=== PATIENT | female | born 1985 | race Caucasian/White ===

== ENCOUNTER 2023-04-11 07:09 | Outpatient (OUT) | payer BC, SELFPAY ==
--- NOTE | 2023-04-11 07:14 | CT_ITS ---
[address] [address] Patient Name: ALICJA RODRIGUEZ MRN: [id number] date: 1985 Sex: F Assigned Patient Location: CT Current Patient Location: CT Accession/Order Number: [id number] Exam Date: 04/11/2023 08:50 Report Date: 04/11/2023 09:37 At the request of: NON-STAFF PHYSICIAN Procedure: CT abdomen pelvis w con EXAMINATION: CT abdomen pelvis w con HISTORY: Gross hematuria R31.0 , abdominal pain COMPARISON: CT abdomen pelvis 03/13/2023 TECHNIQUE: Axial, Coronal, and Sagittal images were obtained without and/or with IV contrast as indicated by examination type. Dose reduction techniques were achieved by using automated exposure control and/or adjustment of mA and/or kV according to patient size and/or use of iterative reconstruction technique. FINDINGS: LUNG BASES: No visible pulmonary or pleural disease. LIVER: Stable 1.5 cm hypodensity within inferior right hepatic lobe suspected represent a hemangioma. Stable small cyst within left hepatic lobe. BILIARY: No dilatation or calcification. PANCREAS: No lesion, fluid collection, or abnormal duct dilatation. SPLEEN: No enlargement or focal lesion. ADRENALS: No mass or enlargement. KIDNEYS: No mass, obstruction, or calcification. BOWEL/MESENTERY: No visible mass, obstruction, or bowel wall thickening. Normal appendix. AORTA/VASCULAR: No aneurysm or dissection. RETROPERITONEUM: No mass or adenopathy. LYMPH NODES: No adenopathy. URINARY BLADDER: No visible focal wall thickening, lesion, or calculus. PELVIC ORGANS: No visible mass. Pelvic organs appropriate for patient age. ABDOMINAL WALL: No mass or hernia. BONES: No bony lesion or fracture. OTHER: Negative. IMPRESSION: 1.No urinary tract calculi, mass, or suspicious findings to account for patient's symptoms. Electronically authenticated by: DIANE EVANS Date: 04/11/2023 09:37
== END 2023-04-11 07:10 ==
LOC: CT 07:09
DX: R31.0 Gross hematuria (principal); R10.9 Unspecified abdominal pain
CPT/HCPCS: 74177; Q9967

== ENCOUNTER 2023-11-12 04:16 | Emergency (ER) | payer BC, SELFPAY ==
[2023-11-12 04:19] VITALS: BP 124/86; PULSE 105; RESP 18; TEMP 37.1; O2SAT 100; BMI 25.7
--- NOTE | 2023-11-12 05:08 | ED_ITS ---
HPI - General Adult General Chief complaint: Headache Stated complaint: flank pain headache Time Seen by Provider: 11/12/23 05:03 Source: patient Mode of arrival: walk-in Limitations: no limitations History of Present Illness HPI narrative: patient presents complaining of right flank pain. ongoing pain for past 5 days. States similar pain in the past without clear etiology including neg workup by Urology. [place] also developed a migraine headache. Similar to past migraines. No nausea or photophobia. no fever or chills. No injury to her lower back or radicular symptoms Related Data Home Medications Medication Instructions Recorded Confirmed ubrogepant 50 mg tablet (Ubrelvy) mg 11/12/23 Allergies Allergy/AdvReac Type Severity Reaction Status Date / Time No Known Drug Allergies Allergy Verified 11/12/23 04:24 Review of Systems ROS Status of ROS 10 or more systems reviewed and unremark able except as noted in history and below PFSH PFS Social History Smoking status: Current every day smoker Exam Constitutional Vital Signs, click to edit/add: Last Vital Signs Temp 98.7 F 11/12/23 04:19 Pulse 105 H 11/12/23 04:19 Resp 18 11/12/23 04:19 BP 124/86 11/12/23 04:19 Pulse Ox 100 11/12/23 04:19 O2 Del Method Room Air 11/12/23 04:19 Common normals: average body habitus, oriented x3, no limitations, healthy appearing, alert and well nourished General appearance: in distress (mild) HENMT Common normals: normocephalic and head/scalp atraumatic Eye Common normals: PERRL, EOMs intact bilaterally and conjunctivae normal Respiratory Common normals: normal respiratory effort, no retractions and no use of accessory muscles Cardio Common normals: regular rate, regular rhythm, S1 normal heart sound and S2 normal heart sound GI Common normals: Normal to inspection, nondistended, normoactive bowel sounds present, soft to palpation and non-tender Back & Pelvis General back: CVA tenderness Other: right CVA tenderness Extremity Common normals: normal to inspection and full ROM Neuro Common normals: oriented x3, CN's II-XII intact bilaterally, moves all extremities, no focal motor deficits and no sensory deficits noted Psych Appearance: grossly normal Course Vital Signs Vital signs: Vital Signs Temperature 98.7 F 11/12/23 04:19 Pulse Rate 105 H 11/12/23 04:19 Respiratory Rate 18 11/12/23 04:19 Blood Pressure 124/86 11/12/23 04:19 Pulse Oximetry 100 11/12/23 04:19 Oxygen Delivery Method Room Air 11/12/23 04:19 Temperature 98.7 F 11/12/23 04:19 Pulse Rate 105 H 11/12/23 04:19 Respiratory Rate 18 11/12/23 04:19 Blood Pressure 124/86 11/12/23 04:19 Pulse Oximetry 100 11/12/23 04:19 Oxygen Delivery Method Room Air 11/12/23 04:19 Medical Decision Making MDM Narrative Medical decision making narrative: patient presents with recurrent flank pain. Similar pain in the past without clear cause. also has a migraine. workup including CT abd/pelvis neg. migraine improved after intervention. UA without infection but does have microscopic hematuria that will require followup. Patient is feeling better including improvement in her flank pain and discharged to follow up with her doctor Lab Data Labs: Lab Results 11/12/23 Range/Units 04:45 WBC 8.8 (4.0-11.0) 10^3/uL RBC 4.72 (4.20-5.40) 10^6/uL Hgb 14.4 (12.0-16.0) g/dL Hct 44.3 (36.0-48.0) % MCV 93.9 (81.0-99.0) fL MCH 30.5 (26.7-34.0) pg MCHC 32.5 (29.9-35.2) g/dL RDW 12.2 (11.0-15.0) % Plt Count 329 (150-450) 10^3/uL MPV 9.6 (9.5-13.5) fL Neut % (Auto) 49.2 (43.0-75.0) % Lymph % (Auto) 36.5 (20.5-60.0) % [place] % (Auto) 12.5 H (1.7-12.0) % Eos % (Auto) 1.0 (0.9-7.0) % Baso % (Auto) 0.6 (0.2-2.0) % Neut # (Auto) 4.3 (1.4-6.5) 10^3/uL Lymph # (Auto) 3.2 (1.2-3.8) 10^3/uL [place] # (Auto) 1.1 H (0.3-0.8) 10^3/uL Eos # (Auto) 0.1 (0.0-0.7) 10^3/uL Baso # (Auto) 0.1 (0.0-0.1) 10^3/uL Abs Immat Gran (auto) 0.02 (0.00-0.03) 10^3/uL Imm/Tot Granulo (auto) 0.2 (0.0-0.5) % Sodium 140 (136-145) mmol/L Potassium 3.6 (3.5-5.1) mmol/L Chloride 105 (98-107) mmol/L Carbon Dioxide 23.8 (21.0-32.0) mmol/L Anion Gap 14.8 BUN 11.0 (7.0-18.0) mg/dL Creatinine 0.77 (0.55-1.02) mg/dL Est GFR ( Amer) >60 (>=60) Est GFR (Non-Af Amer) >60 (>=60) BUN/Creatinine Ratio 14.3 Glucose 122 H (74-106) mg/dL Lactate 1.2 (0.4-2.0) mmol/L Calcium 9.2 (8.5-10.1) mg/dL Total Bilirubin 0.6 (0.2-1.0) mg/dL AST 16 (15-37) U/L ALT 20 (14-59) U/L Alkaline Phosphatase 64 (46-116) U/L Total Protein 7.7 (6.4-8.2) g/dL Albumin 3.7 (3.4-5.0) g/dL Globulin 4.0 g/dL Albumin/Globulin Ratio 0.9 Urine Color Yellow (YELLOW) Urine Clarity Clear (CLEAR) Urine pH 7.0 (5.0-9.0) Ur Specific [place] 1.020 (1.005-1.025) Urine Protein Negative (NEG/TRACE) mg/dL Urine Glucose (UA) Negative (NEGATIVE) mg/dL Urine Ketones Negative (NEGATIVE) mg/dL Urine Occult Blood Moderate A (NEGATIVE) Urine Nitrite Negative (NEGATIVE) Urine Bilirubin Negative (NEGATIVE) Urine Urobilinogen 1.0 (0.2-1.0) EU/dL Ur Leukocyte Esterase Negative (NEGATIVE) Urine RBC 2-5 A (0-2) #/HPF Urine WBC 2-5 A (NONE SEEN) #/HPF Ur Squamous Epith Cells Few A (NONE/RARE) #/LPF Urine Crystals Seen A (None Seen) #/HPF Amorphous Sediment Few Urine Bacteria None seen (NONE SEEN) #/HPF Urine Casts None seen (NONE SEEN) #/LPF Urine Mucus None seen (NONE SEEN) Ur Culture Indicated? No Discharge Plan Discharge Chief Complaint: Headache Clinical Impression: Acute flank pain, Migraine, Hematuria Patient Disposition: Home, Self-Care Prescriptions / Home Meds: No Action Ubrelvy 50 mg tablet Instructions: Migraine Headache (ED), Hematuria (ED), Flank Pain (ED) Additional Instructions: follow up with your doctor this week for recheck or your urine Stand Alone Forms: Portal Instructions Referrals: CHELSEY RUTH [Primary Care Provider] - 1 week
--- NOTE | 2023-11-12 05:11 | CT_ITS ---
[address] [address] Patient Name: ALICJA RODRIGUEZ MRN: [id number] date: 1985 Sex: F Assigned Patient Location: ER Current Patient Location: ED.[facility] Accession/Order Number: [id number] Exam Date: 11/12/2023 05:20 Report Date: 11/12/2023 06:08 At the request of: AUSTYN GUERRA Procedure: CT abdomen pelvis wo con EXAMINATION: CT abdomen pelvis wo con HISTORY: right flank pain COMPARISON: CT abdomen pelvis 04/11/2023 TECHNIQUE: Axial, Coronal, and Sagittal images were obtained without and/or with IV contrast as indicated by examination type. Dose reduction techniques were achieved by using automated exposure control and/or adjustment of mA and/or kV according to patient size and/or use of iterative reconstruction technique. FINDINGS: LUNG BASES: No visible pulmonary or pleural disease. LIVER: Stable small left hepatic lobe cyst versus hemangioma. No enlargement, atrophy, suspicious density, or significant focal lesion. BILIARY: No dilatation or calcification. PANCREAS: No lesion, fluid collection, or abnormal duct dilatation. SPLEEN: No enlargement or focal lesion. ADRENALS: No mass or enlargement. KIDNEYS: No mass, obstruction, or calcification. BOWEL/MESENTERY: No visible mass, obstruction, or bowel wall thickening. Normal appendix. AORTA/VASCULAR: No aneurysm or dissection. RETROPERITONEUM: No mass or adenopathy. LYMPH NODES: No adenopathy. URINARY BLADDER: No visible focal wall thickening, lesion, or calculus. PELVIC ORGANS: No visible mass. Pelvic organs appropriate for patient age. ABDOMINAL WALL: No mass or hernia. BONES: No bony lesion or fracture. OTHER: Negative. CT/CT abdomen pelvis wo con IMPRESSION: 1. No acute or suspicious findings to account for patient's symptoms. Electronically authenticated by: DIANE EVANS Date: 11/12/2023 06:08
[2023-11-12 05:27] LABS: Bilirubin Urine NEGATIVE (NEGATIVE); Blood Urine MODERATE (NEGATIVE); Clarity Urine CLEAR (CLEAR); Color Urine YELLOW (YELLOW); Glucose Urine UA NEGATIVE (NEGATIVE); Ketones Urine NEGATIVE (NEGATIVE); Leukocyte Esterase Urine NEGATIVE (NEGATIVE); Nitrite Urine NEGATIVE (NEGATIVE); Protein Urine NEGATIVE (NEG/TRACE); Urine Microscopic Indicated YES
[2023-11-12 05:29] LABS: Basophils Absolute Auto 0.1 10^3/uL (0.0-0.1); Basophils Percent Auto 0.6 % (0.2-2.0); Eosinophils Absolute Auto 0.1 10^3/uL (0.0-0.7); Hematocrit 44.3 % (36.0-48.0); Hemoglobin 14.4 g/dL (12.0-16.0); Immature Granulocytes Abs Auto 0.02 10^3/uL (0.00-0.03); Immature Granulocytes Pct Auto 0.2 % (0.0-0.5); Lymphocytes Absolute Auto 3.2 10^3/uL (1.2-3.8); Lymphocytes Percent Auto 36.5 % (20.5-60.0); Mean Corpuscular HGB Conc 32.5 g/dL (29.9-35.2); Mean Corpuscular Hemoglobin 30.5 pg (26.7-34.0); Mean Corpuscular Volume 93.9 fL (81.0-99.0); Mean Platelet Volume 9.6 fL (9.5-13.5); Monocytes Absolute Auto 1.1 10^3/uL (0.3-0.8); Monocytes Percent Auto 12.5 % (1.7-12.0); Neutrophils Absolute Auto 4.3 10^3/uL (1.4-6.5); Neutrophils Percent Auto 49.2 % (43.0-75.0); Platelet Count 329 10^3/uL (150-450); Red Blood Count 4.72 10^6/uL (4.20-5.40); Red Cell Distribution Width 12.2 % (11.0-15.0); White Blood Count 8.8 10^3/uL (4.0-11.0)
[2023-11-12 05:34] LABS: Amorphous Sediment Urine FEW; Bacteria Urine NONE SEEN #/HPF (NONE SEEN); Cast Seen? NONE SEEN #/LPF (NONE SEEN); Crystals Seen? Seen #/HPF (None Seen); Mucus Urine NONE SEEN (NONE SEEN); Squamous Epithelial Cell Urine FEW #/LPF (NONE/RARE)
[2023-11-12 05:35] LABS: Urine Culture Indicated NO
[2023-11-12] MEDS: KETOROLAC TROMETHAMINE 30 MG/ML VIAL IVP (05:51)
[2023-11-12] MEDS: 0.9 % SODIUM CHLORIDE 1,000 ML 999 ML IV (05:51)
[2023-11-12] MEDS: DIPHENHYDRAMINE HCL 50 MG/ML (1ML) VIAL IV (05:53)
[2023-11-12] MEDS: METOCLOPRAMIDE HCL 10 MG/2 ML VIAL IVP (05:54)
[2023-11-12 05:56] LABS: Lactate/Lactic Acid 1.2 mmol/L (0.4-2.0)
[2023-11-12 06:02] LABS: Alanine Aminotransferase 20 U/L (14-59); Albumin Globulin Ratio 0.9; Albumin Level 3.7 g/dL (3.4-5.0); Alkaline Phosphatase 64 U/L (46-116); Anion Gap 14.8; Aspartate Amino Transferase 16 U/L (15-37); BUN Creatinine Ratio 14.3; Bilirubin Total 0.6 mg/dL (0.2-1.0); Calcium 9.2 mg/dL (8.5-10.1); Carbon Dioxide 23.8 mmol/L (21.0-32.0); Chloride 105 mmol/L (98-107); Estimated GFR (African America >60 (>=60); Estimated GFR (Non-African Ame >60 (>=60); Glucose 122 mg/dL (74-106); Potassium 3.6 mmol/L (3.5-5.1); Sodium 140 mmol/L (136-145); Total Protein 7.7 g/dL (6.4-8.2)
== END 2023-11-12 06:52 | disposition home or self-care (01) ==
PROVIDERS: Emergency Provider Internal Medicine; PCP Family Medicine
DX: R10.9 Unspecified abdominal pain (principal); R31.9 Hematuria, unspecified; G43.909 Migraine, unspecified, not intractable, without status migrainosus; F17.210 Nicotine dependence, cigarettes, uncomplicated
CPT/HCPCS: 36415; 74176; 80053; 81001; 83605; 85025; 96374; 96375; 99284; J1200; J1885; J2765

== ENCOUNTER 2024-11-13 21:28 | Emergency (ER) | payer BC, SELFPAY ==
[2024-11-13] VITALS (13 sets, daily range): BP systolic 104–120; BP diastolic 58–74; PULSE 78–101; TEMP 37–37.1; O2SAT 98–100; BMI 25.7
--- OUTSIDE RECORDS SUMMARY | 2024-11-13 21:33 | XMS_ITS | CCD ---
Author Organization [facility] Care Team Providers Care Desk Officer Name Role Phone ERIK ROBERT Consulting Unavailable DR RAÚL MONSON Primary Care Unavailable ERIK ROBERT Admitting Unavailable ERIK ROBERT Attending Unavailable ALFREDO, MARLY Attending Unavailable ALFREDO, MARLY Admitting Unavailable DR RAÚL MONSON Primary Care Unavailable DR HA CONTE Consulting Unavailable ALFREDO, MARLY Consulting Unavailable DO Pedro Luis Roblero Primary Care Provider GRICELDA Jack Attending Provider [phone] Lyubov Jack Unavailable PEDRO LUIS ROBLERO Primary Care Physician [phone] PIETER ESPINOZA Attending Unavailab Mary Osei Referring Unavailable Mary Layton Attending Unavailable Mary Layton Admitting Unavailable PIETER ESPINOZA Attending Unavailab PIETER Adler Admitting Unavailab PIETER Adler Attending Unavailab PIETER Adler Admitting Unavailab Mary Osei Referring Unavailable Mary Layton Attending Unavailable PIETER ESPINOZA Attending Unavailab PEDRO LUIS Fam Referring Unavailable ALFREDO, MARLY L Attending Unavailable ALFREDO, MARLY L Referring Unavailable ALFREDO, MARLY L Primary Care Unavailable ALFREDO, MARLY L Attending Unavailable ALFREDO, MARLY L Referring Unavailable ALFREDO, MARLY L Primary Care Unavailable ALFREDO, MARLY L Attending Unavailable ALFREDO, MARLY L Referring Unavailable ALFREDO, MARLY L Primary Care Unavailable ALFREDO, MARLY L Referring Unavailable ALFREDO, MARLY L Primary Care Unavailable ALFREDO, MARLY L Referring Unavailable ALFREDO, MARLY L Primary Care Unavailable Allergies Allergy Classification Reported Allergen(s) Allergy Type Date of Onset Reaction(s) Facility (1 source) No Known Medication Allergies; Translations: [No Known Medication Allergies] Propensity to adverse reactions (disorder) [facility] Repository Medications Current Medications Medication Drug Class(es) Dates Sig (Normalized) Sig (Original) ciprofloxacin 500 mg oral tablet (2 sources) Quinolone Antimicrobial Start: 05-15-2022 take 1 tablet by mouth every twelve hours Cipro 500 MG 1 tablet Orally every 12 hrs for 5 day(s) Apr, Active ubrogepant 50 mg oral tablet (5 sources) Start: 04-01-2023 Ubrelvy 50 mg oral tablet Refills(s) 0 Start Date: 04/01/23 Status: Ordered Completed/Discontinued Medications Medication Drug Class(es) Dates Sig (Normalized) Sig (Original) Ibuprofen-800 mg 800 mg (2 sources) take 1 tablet by haris th every six hours as needed for pain Ibuprofen-800 mg 800 mg 1 tab orally every six hours prn pain Not-Taking Problems Problem Classification Problem Date Documented Date Episodic/Chronic Anxiety disorders (2 sources) Anxiety disorder, unspecified; Translations: [Anxiety disorder, unspecified] Onset: 02-25-2024 Chronic Diseases of white blood cells (2 sources) Lymphocytosis (symptomatic); Translations: [Lymphocytosis (symptomatic)] Onset: 04-30-2024 Chronic Genitourinary symptoms and ill-defined conditions (11 sources) Dysuria; Translations: [Frequency of micturition] Onset: 07-21-2021 Resolved: 05-15-2022 Episodic Headache; including migraine (6 sources) Migraine; Translations: [Tension-type headache, unspecified, not intractable] Onset: 04-30-2024 04-01-2023 Chronic Malaise and fatigue (2 sources) Other fatigue; Translations: [Other fatigue] Onset: 03-26-2024 Episodic Mood disorders (1 source) Major depressive disorder, single episode, moderate; Translations: [Major depressive disorder, single episode, moderate] Onset: 03-26-2024 Chronic Mood disorders (2 sources) Mood disorders; Translations: [Depression, unspecified] Onset: 03-26-2024 Other nutritional; endocrine; and metabolic disorders (2 sources) Abnormal weight loss; Translations: [Abnormal weight loss] Episodic Substance-related disorders (2 sources) Nicotine dependence, cigarettes, uncomplicated; Translations: [Nicotine dependence, unspecified, uncomplicated] Onset: 07-31-2021 Chronic Unclassified (4 sources) Unspecified lump in the right breast, overlapping quadrants; Translations: [UNS LUMP RT BREAST OVRLPNG QUADRNTS] Onset: 08-24-2021 Unclassified (1 source) mental health issues Onset: 02-25-2024 Urinary tract infections (11 sources) Urinary tract infection, site not specified; Translations: [Urinary tract infectious disease] Onset: 07-31-2021 Resolved: 05-15-2022 Episodic Results Test Name Value Interpretation Reference Range Facility CBC AND AUTO DIFFon 04-30-20 ABSOLUTE BASOPHIL 0.1 X10E9/L Normal 0.0-0.2 [facility] Comment on above: Performed By: #### C BCA #### [facility] ([id number]) [address] [facility] [facility] [address] [place] [address] ABSOLUTE NEUTROPHIL 4.8 X10E9/L Normal 1.5-6.6 [facility] Comment on above: Performed By: #### C BCA #### [facility] ([id number]) [address] [facility], [address] [place] [address] Basophils/100 WBC (Bld) 0.7 % Normal [facility] Comment on above: Performed By: #### C BCA #### [facility] ([id number]) [address] [facility], [address] [place] [address] Eosinophils (Bld) [#/Vol] 0.1 10*3/uL Normal 0.0-0.4 [facility] Comment on above: Performed By: #### C BCA #### [facility] ([id number]) [address] [facility] [address] [place] [address] Eosinophils/100 WBC (Bld) 0.9 % Normal [facility] Comment on above: Performed By: #### C BCA #### [facility] ([id number]) [address] [facility], [address] [place] [address] Erythrocyte distribution width (RBC) [Ratio] 13.8 % Normal 11.5-15.0 [facility] Comment on above: Performed By: #### C BCA #### [facility] ([id number]) [address] [place] [address] Hematocrit (Bld) [Volume fraction] 45.9 % Normal 35-47 [facility] Comment on above: Performed By: #### C BCA #### [facility] ([id number]) [address] [place] [address] Hemoglobin (Bld) [Mass/Vol] 14.9 g/dL Normal 11.7-15.5 [facility] Comment on above: Performed By: #### C BCA #### [facility] ([id number]) [address] [place] [address] Lymphocytes (Bld) [#/Vol] 2.6 10*3/uL Normal 1.0-3.5 [facility] Comment on above: Performed By: #### C BCA #### [facility] ([id number]) [address] [place] [address] Lymphocytes/100 WBC (Bld) 30.2 % Normal [facility] Comment on above: Performed By: #### C BCA #### [facility] ([id number]) [address] [place] [address] MCH (RBC) [Entitic mass] 31.1 pg Normal 27-34 [facility] Comment on above: Performed By: #### C BCA #### [facility] ([id number]) [address], [address] [place] [address] MCHC (RBC) [Mass/Vol] 32.5 g/dL Normal 32-36 [facility] Comment on above: Performed By: #### C BCA #### [facility] ([id number]) [address] [place] [address] MCV (RBC) [Entitic vol] 95 fL Normal 80-100 [facility] Comment on above: Performed By: #### C BCA #### [facility] ([id number]) [address] [place] [address] Monocytes (Bld) [#/Vol] 1.1 10*3/uL High 0-0.9 [facility] Comment on above: Performed By: #### C BCA #### [facility] ([id number]) [address] [place] [address] Monocytes/100 WBC (Bld) 12.4 % Normal [facility] Comment on above: Performed By: #### C BCA #### [facility] ([id number]) [address], [address] [place] [address] Neutrophils/100 WBC (Bld) 55.8 % Normal [facility] Comment on above: Performed By: #### C BCA #### [facility] ([id number]) [address] [place] [address] Platelet mean volume (Bld) [Entitic vol] 8.5 fL Normal 7-12 [facility] Comment on above: Performed By: #### C BCA #### [facility] ([id number]) [address], [address] [place] [address] Platelets (Bld) [#/Vol] 362 10*3/uL Normal 150-450 [facility] Comment on above: Performed By: #### C BCA #### [facility] ([id number]) [address], [address] [place] [address] RBC COUNT 4.81 X10E12/L Normal 3.80-5.20 [facility] Comment on above: Performed By: #### C BCA #### [facility] ([id number]) [address], [address] [place] [address] WBC (Bld) [#/Vol] 8.6 10*3/uL Normal 4.0-11.0 [facility] Comment on above: Performed By: #### C BCA #### [facility] ([id number]) [address], [address] [place] [address] BASIC METABOLIC PANLon 03-26 Anion gap [Moles/Vol] 11 mmol/L Normal 5-15 [facility] Comment on above: Performed By: #### B MP, TSHR, CBCA #### [facility] ([id number]) [address] [place] [address] Calcium [Mass/Vol] 9.5 mg/dL Normal 8.5-10.5 [facility] Comment on above: Performed By: #### B MP, TSHR, CBCA #### [facility] ([id number]) [address] [place] [address] Chloride [Moles/Vol] 105 mmol/L Normal 98-109 [facility] Comment on above: Performed By: #### B MP, TSHR, CBCA #### [facility] ([id number]) [address], [address] [place] [address] CO2 [Moles/Vol] 23 mmol/L Normal 22-32 [facility] Comment on above: Performed By: #### B MP, TSHR, CBCA #### [facility] ([id number]) [address], [address] [place] [address] Creatinine [Mass/Vol] 0.72 mg/dL Normal 0.40-1.00 [facility] Comment on above: Result Comment: METH OD TRACEABLE TO IDMS STANDARD Performed By: #### B MP, TSHR, CBCA #### [facility] ([id number]) [address] [address] eGFR (CKD-EPI) NON-RACE DEPENDENT >90 Normal >59 [facility] Comment on above: Result Comment: Reported eGFR is based on the CKD-EPI 2020 equation that does not use a race coefficient. Performed By: #### B MP, TSHR, CBCA #### [facility] ([id number]) [address] [address] Glucose [Mass/Vol] 86 mg/dL Normal 65-99 [facility] Comment on above: Performed By: #### B MP, TSHR, CBCA #### [facility] ([id number]) [address] [address] Potassium [Moles/Vol] 4.9 mmol/L Normal 3.5-5.0 [facility] Comment on above: Performed By: #### B MP, TSHR, CBCA #### [facility] ([id number]) [address] [address] Sodium [Moles/Vol] 139 mmol/L Normal 134-146 [facility] Comment on above: Performed By: #### B MP, TSHR, CBCA #### [facility] ([id number]) [address] [address] Urea nitrogen [Mass/Vol] 9 mg/dL Normal 5-23 [facility] Comment on above: Performed By: #### B MP, TSHR, CBCA #### [facility] ([id number]) [address] [address] CBC AND AUTO DIFFon 03-26-20 24 ABSOLUTE BASOPHIL 0.1 X10E9/L Normal 0.0-0.2 [facility] Comment on above: Performed By: #### B MP, TSHR, CBCA #### [facility] ([id number]) [address] [address] ABSOLUTE NEUTROPHIL 8.2 X10E9/L High 1.5-6.6 [facility] Comment on above: Performed By: #### B MP, TSHR, CBCA #### [facility] ([id number]) [address] [facility] [address] [place] [address] Basophils/100 WBC (Bld) 0.5 % Normal [facility] Comment on above: Performed By: #### B MP, TSHR, CBCA #### [facility] ([id number]) [address] [facility] [address] [place] [address] Eosinophils (Bld) [#/Vol] 0.1 10*3/uL Normal 0.0-0.4 [facility] Comment on above: Performed By: #### B MP, TSHR, CBCA #### [facility] ([id number]) [address] [address] Eosinophils/100 WBC (Bld) 0.4 % Normal [facility] Comment on above: Performed By: #### B NADYA, TSHR, CBCA #### [facility] ([id number]) [address] [address] Erythrocyte distribution width (RBC) [Ratio] 13.8 % Normal 11.5-15.0 [facility] Comment on above: Performed By: #### B MP, TSHR, CBCA #### [facility] ([id number]) [address] [address] [place] [address] Hematocrit (Bld) [Volume fraction] 43.0 % Normal 35-47 [facility] Comment on above: Performed By: #### B MP, TSHR, CBCA #### [facility] ([id number]) [address] [address] [place] [address] Hemoglobin (Bld) [Mass/Vol] 14.2 g/dL Normal 11.7-15.5 [facility] Comment on above: Performed By: #### B MP, TSHR, CBCA #### [facility] ([id number]) [address] [address] [place] [address] Lymphocytes (Bld) [#/Vol] 2.6 10*3/uL Normal 1.0-3.5 [facility] Comment on above: Performed By: #### B MP, TSHR, CBCA #### [facility] ([id number]) [address] [address] [place] [address] Lymphocytes/100 WBC (Bld) 21.3 % Normal [facility] Comment on above: Performed By: #### B MP, TSHR, CBCA #### [facility] ([id number]) [address] [address] MCH (RBC) [Entitic mass] 30.9 pg Normal 27-34 [facility] Comment on above: Performed By: #### B MP, TSHR, CBCA #### [facility] ([id number]) [address] [facility] [address] [place] [address] MCHC (RBC) [Mass/Vol] 33.0 g/dL Normal 32-36 [facility] Comment on above: Performed By: #### B MP, TSHR, CBCA #### [facility] ([id number]) [address] [address] [place] [address] MCV (RBC) [Entitic vol] 94 fL Normal 80-100 [facility] Comment on above: Performed By: #### B MP, TSHR, CBCA #### [facility] ([id number]) [address] [address] Monocytes (Bld) [#/Vol] 1.2 10*3/uL High 0-0.9 [facility] Comment on above: Performed By: #### B MP, TSHR, CBCA #### [facility] ([id number]) [address] [place] [address] Monocytes/100 WBC (Bld) 10.0 % Normal [facility] Comment on above: Performed By: #### B MP, TSHR, CBCA #### [facility] ([id number]) [address] [place] [address] Neutrophils/100 WBC (Bld) 67.8 % Normal [facility] Comment on above: Performed By: #### B MP, TSHR, CBCA #### [facility] ([id number]) [address], [address] [place] [address] Platelet mean volume (Bld) [Entitic vol] 8.3 fL Normal 7-12 [facility] Comment on above: Performed By: #### B MP, TSHR, CBCA #### [facility] ([id number]) [address] [place] [address] Platelets (Bld) [#/Vol] 337 10*3/uL Normal 150-450 [facility] Comment on above: Performed By: #### B MP, TSHR, CBCA #### [facility] ([id number]) [address] [place] [address] RBC COUNT 4.59 X10E12/L Normal 3.80-5.20 [facility] Comment on above: Performed By: #### B MP, TSHR, CBCA #### [facility] ([id number]) [address], [address] [place] [address] WBC (Bld) [#/Vol] 12.2 10*3/uL High 4.0-11.0 [facility] Comment on above: Performed By: #### B MP, TSHR, CBCA #### [facility] ([id number]) [address] [place] [address] TSH WITH REFLEXon 03-26-2024 TSH 0.91 uIU/mL Normal 0.49-4.67 [facility] Comment on above: Performed By: #### B MP, TSHR, CBCA #### [facility] ([id number]) [address] [facility], [address] [place] [address] Pre-Certification Formon Pre-Certification Form [id number] A0#1.00TIFF Normal [facility] Pre-Certification Formon Pre-Certification Form [id number] A6#1.00TIFF Normal [facility] Pre-Certification Form [id number] FD#1.00TIFF Normal [facility] Physician Orderon 12-05-2023 Physician Order [id number] 48#1.00TIFF Normal [facility] Physician Order [id number] AD#1.00TIFF Normal [facility] ED Note-Physicianon 11-18-19 ED Note-Physician [id number] 54#1.00TIFF [facility] RAD - CT Reporton 11-18-2023 RAD - CT Report [id number] D#1.00TIFF Normal [facility] C Urineon 11-12-2023 Bacteria identified Cx Nom (U) Microbiology PROCEDURE: Urine Culture [R1] SOURCE: U CleanCatch BODY SITE: COLLECTED DATE/TIME: 11/10/2023 15:38 EST RECEIVED DATE/TIME: 11/10/2023 18:54 EST START DATE/TIME: 11/10/2023 18:54 EST FREE TEXT SOURCE: EULALIA ESPINOZA PA-C, PA-C, JENNIFER E FINAL REPORTS Final Report [] Verified Date/Time: 11/12/2023 09:16 EST 1,000 cfu/ml Mixed skin contaminants Performing Locations R1: This test was performed at: [facility], [address] [place] [address], [address] , [place], [facility] Comment on above: Performed By: #### 2 [id number] ####[facility] [id number] [place] [address] Ambulatory Visit Summaryon 0 11-10-2023 Ambulatory Visit Summary ALICJA RODRIGUEZ :1985 Visit Date:11/10/2023 Ambulatory Visit Instructions Your Care Team Attending Physician - EULALIA ESPINOZA PA-C Primary Care Physician - PEDRO LUIS ROBLERO DO This Is Your Medications List ubrogepant (Ubrelvy 50 mg oral tablet) Procedures Performed Cystoscopy (04/14/2023), Tubal ligation. Medications What When Instructions Unchanged ubrogepant (Ubrelvy 50 mg oral tablet) Allergies No Known Medication Allergies Problems Ongoing - Any problem that you are currently receiving treatment for. Migraine Recurrent UTI Patient Survey You may receive a survey via text or e-mail asking about your office visit. Please share your experience with us by completing your survey. We appreciate your feedback and thank you for choosing us for your care. Normal [facility] RAD - CT Reporton 04-16-2023 RAD - CT Report [id number] E#1.00CD:127 [facility] Consent for Procedure/Surger yon 04-14-2023 Consent for Procedure/Surgery [id number] 9#1.00CD:127 [facility] Consent for Treatmenton 03-27 Consent for Treatment [id number] 6B#1.00CD:127 [facility] Inpatient Patient Summaryon 04-14-2023 Inpatient Patient Summary [place] [address] Clinical Summary Person Information Name: ALICJA RODRIGUEZ Age: 37 Years : 1985 Sex: Female PCP: PEDRO LUIS ROBLERO DO Marital Status: Single Race: White Ethnicity: Non- or Language: Japanese Visit Id: Visit Reason: GROSS HEMATURIA AND REACURRING UTI Speciality: Acuity: Enc Type: Outpatient Med Service: Surgery Arrival: 04/14/2023 08:45:50 Discharge: Dispo Type: Address: [address] [place] [id number] Provider Notes: Diagnosis: Gross hematuria; Recurrent UTI Problems Active Recurrent UTI Migraine Smoking Status: Functional Status: Sensory Deficits: History of Falls: Mobility Assistance Prior to Admission: ADLs: Current Level of Assistance for Self-Care/Mobility: Cognitive Status: Allergies No Known Medication Allergies Laboratory or Other Results This Visit (last charted value for your 04/14/2023 visit) No Laboratory or Other Results This Visit Measurements: Height: 163 cm Weight: Blood Pressure: Not Valued / Not Valued BMI: Procedures No Procedures Documented Immunizations No Immunizations Documented This Visit Final Med List: ubrogepant (Ubrelvy 50 mg oral tablet) Care Team Members: Attending Physician: Mary Layton MD Consulting Physician: Referring Physician: Mary Layton MD Follow up: With: Address: When: Mary Layton [address] [place] [phone] Business (1) [address] [place] [address], [place] [address], [place] [phone] Business (1) Comments: Schedule follow up in 6 months or sooner if issues arise. Will call if VCUG/PFPT is recommended Patient Education Information: EU - Cystoscopy Discharge Instructions (CUSTOM) Normal [facility] IntraOperative Documentson 0 04-14-2023 IntraOperative Documents [id number] 3#1.00CD:127 Normal [facility] Main OR Intraoperative Recor don 04-14-2023 Main OR Intraoperative Record IntraOp Document Type FTURO Summary Primary Physician: Mary Layton MD Finalized Date/Time: 04/14/23 09:48:11 Pt. Name: ALICJA RODRIGUEZ Violet Griggs/Sex: 1985 Female Med Rec #: [id number] Physician: Mary Layton MD Financial #: [id number] Pt. Type: O Room/Bed: / Admit/Disch: 04/14/23 08:45:50 - Institution: Case Times FTURO Entry 1 Patient Times In Room 04/14/23 09:39:00 Out Room 04/14/23 09:54:00 Procedure Times Start 04/14/23 09:43:00 Stop 04/14/23 09:49:00 Anesthesia Times Last Modified By: Marcos DARLING, Leigh ESPOSITO 04/14/23 09:47:22 Case Attendance FTURO Entry 1 Entry 2 Entry 3 Case Attendee Mary Layton MD RN, KALYANOR, Lucy Jung Role Performed Surgeon - Primary Triage Licensed Practical Nurse - Primary Scrub - Primary Time In 04/14/23 09:39:00 04/14/23 09:39:00 04/14/23 09:39:00 Time Out 04/14/23 09:54:00 04/14/23 09:54:00 04/14/23 09:54:00 Procedure CYSTOSCOPY LOCAL(.) CYSTOSCOPY LOCAL(.) CYSTOSCOPY LOCAL(.) Comments Last Modified By: Marcos DARLING, KALYANOR, Marcos DARLING, KALYANOR, Marcos DARLING, KALYANORLeigh 04/14/23 Leigh 04/14/23 Leigh 04/14/23 09:47:23 09:47:23 09:47:23 Surgical Procedures FTURO Entry 1 Procedure Description Procedure CYSTOSCOPY LOCAL Modifiers . Surgeon Description CYSTO Primary Procedure Yes Primary Surgeon Mary Layton MD Start 04/14/23 09:43:00 Stop 04/14/23 09:49:00 Anesthesia Type Local Surgical Service Urology Wound Class 2 - Clean-Contaminated Last Modified By: Marcos DARLING, Leigh ESPOSITO 04/14/23 09:47:31 General Case Data FTURO Pre-Care Text: Classifies surgical wound, implements aseptic technique, initiates traffic control Entry 1 Case Information OR URO 1 FT Case Level None Wound Class 2 - Clean-Contaminated Specialty Urology Preop Diagnosis GROSS HEMATURIA AND Postop Same As Preop No REACURRING UTI Postop Diagnosis clear bladder Outcomes Met? Yes Last Modified By: VAIBHAV Rodríguez RN, Ruthann 04/14/23 09:47:44 Post-Care Text: The patient is free from signs and symptoms of infection EU IntraOp - FTURO Pre-Care Text: Implements protective measures prior to operative or invasive procedure, confirms identity before the operative or invasive procedure, verifies operative procedure, surgical site, and laterality Entry 1 EU Perioperative Protocols Procedure(s) CYSTOSCOPY LOCAL(.) Patient Identity Birthday, ID Band Verified (select at Check, Patient least 2): Participation Consents / H and P HandP, Surgery/Procedure Operative Site N/A Verified Consent Marking Verified Surgical Site Yes Laterality Verified n/a Verified Procedure Verified Yes Correct Patient Yes Position Verified Availability Equipment, Medication Time Out Mary Layton MD, Verified (If Participants VAIBHAV Rodríguez RN, Applicable) Erich Abraham Jessica D Time Out Complete 04/14/23 09:40:00 Allergies Reviewed? Yes Allergies Reviewed Self/Patient With Body Position Frog Legged Prep Area perineal area Prep Agents Betadine Solution Skin. Condition Unable to Visualize Additional None Specimens Collected Vitals - EU Blood Pressure 129/89 Pulse 68 bpm Respirations 16 br/min SPO2 EBL 0 IandO - EU Total Intake 0 mL Total Output 0 mL Outcomes Met? Yes Last Modified By: VAIBHAV Rodríguez RN, Ruthann 04/14/23 09:41:09 Post-Care Text: The patient is free from signs and symptoms of injury caused by extraneous objects Sign Out FTURO Entry 1 Before Patient Leaves OR Nurse verbally Yes Nurse verbally n/a confirms with the confirms with the team the name of team that the procedure(s) instrument, sponge, recorded and needle counts are correct (or N/A) Nurse verbally n/a Nurse verbally n/a confirms with the confirms with the team how the team whether there specimen is labeled are any equipment (including patient problems to be name), if applicable addressed Sign Out Complete 04/14/23 09:52:00 Last Modified By: VAIBHAV Rodríguez RN, Ruthann 04/14/23 09:48:09 Case Comments Finalized By: VAIBHAV Rodríguez RN, Ruthann Document Signatures Signed By: VAIBHAV Rodríguez RN, Ruthann 04/14/23 09:48 Normal [facility] Main OR Preoperative Recordo n 04-14-2023 Main OR Preoperative Record Holding Area Document Type FTURO Summary Primary Physician: Mary Layton MD Finalized Date/Time: 04/14/23 09:21:57 Pt. Name: ALICJA RODRIGUEZ Violet Griggs/Sex: 1985 Female Med Rec #: [id number] Physician: Mary Layton MD Financial #: [id number] Pt. Type: O Room/Bed: / Admit/Disch: 04/14/23 08:45:50 - Institution: Case Times Holding FTURO Pre-Care Text: Verifies consent for planned procedure, identifies individual values and wishes concerning care, includes family members in perioperative teaching Secures patient's records' belongings, and valuables, maintains patient's dignity and privacy, and maintains patient confidentiality Entry 1 In Holding 04/14/23 08:57:00 Outcomes Met? Yes Last Modified By: Loida Littlejohn LPN 04/14/23 08:57:12 Post-Care Text: The patient participates in decisions affecting his or her perioperative plan of care The patient's right to privacy is maintained Surgery Checklist FTURO Entry 1 Patient Birthday, ID Band Procedure Surgical Consent, With Identification: Check, Patient Verification: Patient Participation NPO after Midnight: n/a Date/Time: 04/14/23 08:58:00 Personal Items: Jewelry Personal Items ring x 1, nasal piercing Comment: Complaints of Pain: No Skin Integrity Intact, [place], Warm, & Dry Vitals - EU Blood Pressure 129/89 Pulse 68 bpm Respirations 16 br/min SPO2 98 % Additional None RN Reviewed Yes Specimens Collected Last Modified By: VAIBHAV Rodríugez RN, Ruthann 04/14/23 09:21:55 General Comments: Temp 36.8 Finalized By: VAIBHAV Rodríguez RN, Ruthann Document Signatures Signed By: Loida Littlejohn LPN 04/14/23 09:02 VAIBHAV Rodríguez RN, Ruthann 04/14/23 09:21 Normal [facility] Operative Reporton 3 Operative Report Patient: ALICJA RODRIGUEZ Age: 37 years Sex: Female : 1985 Associated Diagnoses: None Author: Mary Layton MD Procedure Operative Information Details: Date/ Time: 04/14/2023 09:55:00. Pre-Op Dx: Gross hematuria (KLP63-AY R31.0, Discharge, Medical), Recurrent UTI (BFQ13-WV N39.0, Discharge, Medical). Post-Op Dx: Same. Anesthesia Type: Local. Procedure: Local Cystoscopy. Complications: None. Risks/Benefits/Info rmed Consent: Surgical risks, benefits, details of the procedure have been explained to the patient, Full informed consent has been obtained. Intraoperative Information Prepped: Patient is brought back to the endoscopy suite, Patient is placed in supine position, Patient prepped in the usual fashion with Betadine solution, 2% Xylocaine Jelly is placed per Urethra, After waiting several minutes the Cystoscope is introduced. The Urethra is: Normal, Mild inflammatory papillary projections around proximal urethra/bladder neck. The Bladder is: Normal, Trabeculated None (0), No bladder tumors, lesions, stones or foreign bodies. . The ureteral orifices: Show efflux of clear urine. Devices Implanted: None. Removal: Cystoscope is removed, The patient tolerated it well. Vaginal examination: Vaginal mucosa: There is no vaginal atrophy The urethra is patent, orthotopic, excess inferior tissue. There are no masses or lesions. None tender. There is mild urethral hypermobility and FLORENTIN is not seen. She is able to correctly identify her pelvic muscles. No signficant POP. Mild Stage 1 anterior/apical prolapse. . Postoperative Information Discharge: Follow up arranged, -Cysto today negative, proximal urethral inflammation. Consider repeat cysto in 6-12 mths. Urine cytology negative. -Still awaiting CT AP w/ IV contrast results from [facility]. On personal review CT scan shows no hydro, stones or filling defects, however contrast not opacifying past R UPJ as well as left side. Moderate stool burden in ascending/transvers e colon. If report wnl, will call pt to schedule VCUG and NM Renal scan. -Suspect voiding dysfunction (hx holding, pain with intercourse, recurrent R pyelo/UTIs and R flank pain) - consider PFFT/biofeedback if recurrent UTIs despite behavioral modifications and OTC supplements -Follow up in 6 months pending the above. Normal [facility] Comment on above: Result Comment: Elec tronically Signed By: Mary Layton MD\.br\Date and Time Signed: 04/14/23 10:08 EDT Outpatient Surgery Discharge Instructionon 04-14-2023 Outpatient Surgery Discharge Instruction [id number] 2#1.00CD:127 Normal [facility] Outpatient Surgery Discharge Instruction [place] [id number] Patient Discharge Instructions PERSON INFORMATION Name: ALICJA RODRIGUEZ Date of : 1985 Current Date: 04/14/2023 09:55:17 PHYSICIANS Admitting Physician: Mary Layton MD Comment: Discharge Diagnosis: Gross hematuria; Recurrent UTI ALICJA RODRIGUEZ has been given the following list of follow-up instructions, prescriptions, and patient education materials: IF UNABLE TO CONTACT YOUR PHYSICIAN AND YOU FEEL IT IS AN EMERGENCY, GO TO THE NEAREST EMERGENCY ROOM OR CALL 911 Follow up: With: Address: When: Mary Layton [address] [place] [id number] [phone] [facility] (1) [address] [place] [id number] [phone] Business (1) Comments: Schedule follow up in 6 months or sooner if issues arise. Will call if VCUG/PFPT is recommended Comment: PATIENT EDUCATION INFORMATION Instructions: Cystoscopy ? Voiding after the procedure: there may be some pain, burning, urgency, frequency and blood tinged urine following the procedure. These symptoms usually resolve within 2-5 days. Drink the amount of fluid it takes to keep the urine pink to yellow or clear in color. Drinking enough water and fluids will help to ease any discomfort after your procedure. ? If you are having problems that seem out of the ordinary, please call. ? If unable to contact your physician and you feel it is an emergency, go to the nearest emergency room or call 911 ? Diet ? you may resume your normal diet. ? Activity ? you may resume your normal activities ? Call if you have a fever over 100 degrees. JENNIFER Deluna MELISSA A, have received the attached patient education materials/instructi ons and have verbalized understanding: May we do a follow up call? Yes No I was present when discharge instructions were given _ Patient Signature Date Clinican/Nurse Signature Date You may receive a survey from Rosa Machuca asking you to rate your care experience. Your feedback is important and will help us understand what we do well and how we can improve the quality of care we provide to you, your loved ones and our community. It?s an honor to serve you. Thank you for choosing [facility] Normal [facility] Pre-Certification [facility] Pre-Certification Form [id number] B9#1.00CD:127 Normal [facility] Pre-Certification Form Pre-Certification Form [id number] 56#1.00CD:127 Normal [facility] Urine Cytology ([facility])on 0 04-04-2023 Urine Cytology Diagnosis Info Invalid Interpretation Code [facility] Comment on above: Result Comment: A:Ur ine,Urine:Voided Interpretation - No evidence of papillary urothelial neoplasm identified. Adequate cellularity for evaluation. MicroScopic Description - Adequacy - Gross Description Site ID:A color Yellow fixative Alcohol Specimen designated Urine received in alcohol preservative and labeled with the patient?s name, consists of 90ml clear yellow fluid. Electronically signed by : on: 04/04/2023 13:52:53 Performed By: #### 1 [id number] ####[facility] [address] [place] [address] Consultation Noteon 04-02-20 Consultation Note [id number] 3C#1.00CD:127 Normal [facility] RAD - CT Reporton 04-02-2023 RAD - CT Report [id number] 321#1.00CD:127 Normal [facility] Patient Educationon 04-01-20 Patient Education Urology Hematuria, Adult Hematuria is blood in the urine. Blood may be visible in the urine, or it may be identified with a test. This condition can be caused by infections of the bladder, urethra, kidney, or prostate. Other possible causes include: ? Kidney stones. ? Cancer of the urinary tract. ? Too much calcium in the urine. ? Conditions that are passed from parent to child (inherited conditions). ? Exercise that requires a lot of energy. Infections can usually be treated with medicine, and a kidney stone usually will pass through your urine. If neither of these is the cause of your hematuria, more tests may be needed to identify the cause of your symptoms. It is very important to tell your health care provider about any blood in your urine, even if it is painless or the blood stops without treatment. Blood in the urine, when it happens and then stops and then happens again, can be a symptom of a very serious condition, including cancer. There is no pain in the initial stages of many urinary cancers. Follow these instructions at home: Medicines ? Take jpoh-edj-aohmxkl and prescription medicines only as told by your health care provider. ? If you were prescribed an antibiotic medicine, take it as told by your health care provider. Do not stop taking the antibiotic even if you start to feel better. Eating and drinking ? Drink enough fluid to keep your urine pale yellow. It is recommended that you drink 3?4 quarts (2.8?3.8 L) a day. If you have been diagnosed with an infection, drinking cranberry juice in addition to large amounts of water is recommended. ? Avoid caffeine, tea, and carbonated beverages. These tend to irritate the bladder. ? Avoid alcohol because it may irritate the prostate (in males). General instructions ? If you have been diagnosed with a kidney stone, follow your health care provider's instructions about straining your urine to catch the stone. ? Empty your bladder often. Avoid holding urine for long periods of time. ? If you are female: ? After a bowel movement, wipe from front to back and use each piece of toilet paper only once. ? Empty your bladder before and after sex. ? Pay attention to any changes in your symptoms. Tell your health care provider about any changes or any new symptoms. ? It is up to you to get the results of any tests. Ask your health care provider, or the department that is doing the test, when your results will be ready. ? Keep all follow-up visits. This is important. Contact a health care provider if: ? You develop back pain. ? You have a fever or chills. ? You have nausea or vomiting. ? Your symptoms do not improve after 3 days. ? Your symptoms get worse. Get help right away if: ? You develop severe vomiting and are unable to take medicine without vomiting. ? You develop severe pain in your back or abdomen even though you are taking medicine. ? You pass a large amount of blood in your urine. ? You pass blood clots in your urine. ? You feel very weak or like you might faint. ? You faint. Summary ? Hematuria is blood in the urine. It has many possible causes. ? It is very important that you tell your health care provider about any blood in your urine, even if it is painless or the blood stops without treatment. ? Take dvjx-dhz-eemfnoz and prescription medicines only as told by your health care provider. ? Drink enough fluid to keep your urine pale yellow. This information is not intended to replace advice given to you by your health care provider. Make sure you discuss any questions you have with your health care provider. Document Revised: 06/13/2021 Document Reviewed: 06/13/2021 [employer] Patient Education ? 2022 [employer] Normal [facility] Urine Cytology ([facility])on 0 04-01-2023 Method of Extraction Voided Normal [facility] Comment on above: Performed By: #### 1 [id number] ####[facility] [address] [place] [address] Number of Jars 1 Invalid Interpretation Code [facility] Comment on above: Performed By: #### 1 [id number] ####[facility] [address] [place] [address] Specimen Urine Normal [facility] Comment on above: Performed By: #### 1 [id number] ####[facility] [address] [place] [place] [address] Type of Service Technical Only Normal [facility] Comment on above: Performed By: #### 1 [id number] ####[facility] [address] [place] [address] Urinalysis - AUTOMATEDon Appearance (U) cloudy [employer] Other Bilirubin Ql (U) Negative meevl Other Color (U) pale yellow [employer] Other Glucose Ql (U) Negative [employer] Other Hemoglobin Ql (U) large [employer] Other Ketones Ql (U) Negative [employer] Other Leukocyte esterase Test strip Ql (U) small [employer] Other Nitrite Ql (U) Positive [employer] Other pH (U) 6.5 [pH] [employer] Other Protein Ql (U) Negative [employer] Other Specific gravity (U) [Rel density] 1.015 [employer] Other Urobilinogen (U) [Mass/Vol] 0.2 mg/dL [employer] Other Urinalysis - AUTOMATED [employer] Other Urine Cultureon 05-15-2022 Bacteria identified Cx Nom (U) Reason for Exam Frequency of urination Urine ORGANISM: Escherichia coli (O:ESCCOL) Wirt Count >100,000 Aerobic DEBRA Charge (NUC86) ------ SUSCEPTIBILITY ----- ORGANISM: O:ESCCOL ANTIBIOTIC INTERPRETATION DEBRA Amikacin S <16 Ampicillin S <8 Ampicillin/Sulbacta m S <8/4 Aztreonam S <4 Cefazolin S <2 Cefepime S <2 Ceftazidime S <1 Ceftazidime/Avibact am S <8 Ceftriaxone S <1 Ciprofloxacin S <1 Ertapenem S <0.5 Gentamicin S <4 Levofloxacin S <2 Meropenem S <1 Nitrofurantoin S <32 Piperacillin/Tazoba ctam S <16 Tetracycline S <4 Tigecycline S <2 Tobramycin S <4 Trimethoprim/Sulfam ethoxazole S <2/38 S = SUSCEPTIBLE I = INTERMEDIATE R = RESISTANT BLANK = DATA NOT AVAILABLE, OR DRUG NOT ADVISABLE OR TESTED R* = RESISTANCE DUE TO EXTENDED SPECTRUM BETA-LACTAMASES ESBL = EXTENDED SPECTRUM BETA-LACTAMASE TFG = THYMIDINE-DEPENDENT STRAIN ALEX = BETA-LACTAMASE POSITIVE IB = INDUCIBLE BETA-LACTAMASE. APPEARS IN PLACE OF 'S' WITH SPECIES KNOWN TO POSSESS INDUCIBLE BETA-LACTAMASES. POTENTIALLY THEY MAY BECOME RESISTANT TO ALL B-LACTAM DRUGS. PERFORMED BY: [address] [address] PATHOLOGIST HOUSEKEEPER LUCAS RESTREPO M.D. Normal [facility] Comment on above: Performed By: #### C UU #### [facility] [address] Urine Culture >100,000 [employer] Other Urine Culture <16 Susceptible [employer] Other Urine Culture <8 Susceptible [employer] Other Urine Culture <4 Susceptible [employer] Other Urine Culture <2 Susceptible [employer] Other Urine Culture <1 Susceptible [employer] Other Urine Culture <0.5 Susceptible [employer] Other Urine Culture <32 Susceptible [employer] Other Urine Culture <2/38 Susceptible [employer] Other MG MAMM DIAGNOSTIC 3D OZIEL CA Don 08-24-2021 MG MAMM DIAGNOSTIC 3D OZIEL CAD Patient: ALICJA RODRIGUEZ Exam Date: 08/24/2021 : 1985 Gender:F Ordering : MARLY FUENTES Admission #: [id number] Family : Order #: [id number] CLICK HERE TO VIEW EXAM RADIOLOGY REPORT PROCEDURE: MAMMOGRAM DIAGNOSTIC 3D BILATERAL CAD, 08/24/2021, 09:26 ULTRASOUND BREAST RIGHT LIMITED, 08/24/2021, 09:51 COMPARISON: None. INDICATIONS: Lump in right breast Calculator Name NCI Breast Cancer Risk Assessment Tool 5 Year Breast Cancer Risk 0.30% Lifetime Breast Cancer Risk 10.00% Personal Breast Cancer No Personal Ovarian Cancer No Treatments None Family Cancers Aunt-paternal with breast cancer at age 50; Uncle-paternal with oral cancer at age 60; Uncle-paternal with lung cancer at age 60. LOCATION: [facility] BREAST COMPOSITION: Extremely dense, which lowers the sensitivity of mammography. FINDINGS: DIAGNOSTIC CATEGORY 1--NEGATIVE ASSESSMENT. RIGHT BREAST: Skin surface marker over the posterior upper outer quadrant localizes the patient's palpable lump. No abnormal mammographic findings. Ultrasound evaluation of this area demonstrates normal appearing fibroglandular tissue. LEFT BREAST: No significant suspicious finding. RECOMMENDATIONS: CLINICAL EVALUATION. PLEASE NOTE: A NORMAL MAMMOGRAM DOES NOT EXCLUDE THE POSSIBILITY OF BREAST CANCER. A CLINICALLY SUSPICIOUS PALPABLE LUMP SHOULD BE BIOPSIED. Dictated by: Ha Conte M.D. on 08/24/2021 at 10:03 Approved by: Ha Conte M.D. on 08/24/2021 at 10:05 Normal [facility] US BREAST RIGHT LIMITEDon US BREAST RIGHT LIMITED Patient: ALICJA RODRIGUEZ Exam Date: 08/24/2021 : 1985 Gender:F Ordering : MARLY FUENTES Admission #: [id number] Family : Order #: [id number] CLICK HERE TO VIEW EXAM RADIOLOGY REPORT PROCEDURE: MAMMOGRAM DIAGNOSTIC 3D BILATERAL CAD, 08/24/2021, 09:26 ULTRASOUND BREAST RIGHT LIMITED, 08/24/2021, 09:51 COMPARISON: None. INDICATIONS: Lump in right breast Calculator Name NCI Breast Cancer Risk Assessment Tool 5 Year Breast Cancer Risk 0.30% Lifetime Breast Cancer Risk 10.00% Personal Breast Cancer No Personal Ovarian Cancer No Treatments None Family Cancers Aunt-paternal with breast cancer at age 50; Uncle-paternal with oral cancer at age 60; Uncle-paternal with lung cancer at age 60. LOCATION: [facility] BREAST COMPOSITION: Extremely dense, which lowers the sensitivity of mammography. FINDINGS: DIAGNOSTIC CATEGORY 1--NEGATIVE ASSESSMENT. RIGHT BREAST: Skin surface marker over the posterior upper outer quadrant localizes the patient's palpable lump. No abnormal mammographic findings. Ultrasound evaluation of this area demonstrates normal appearing fibroglandular tissue. LEFT BREAST: No significant suspicious finding. RECOMMENDATIONS: CLINICAL EVALUATION. PLEASE NOTE: A NORMAL MAMMOGRAM DOES NOT EXCLUDE THE POSSIBILITY OF BREAST CANCER. A CLINICALLY SUSPICIOUS PALPABLE LUMP SHOULD BE BIOPSIED. Dictated by: Ha Conte M.D. on 08/24/2021 at 10:03 Approved by: Ha Conte M.D. on 08/24/2021 at 10:05 Normal [facility] THINPREP TIS PAP AND HPV mRN A E6/E7 REFLEX HPV 16,18/45on 08-07-2021 CLINICAL INFORMATION: Normal [facility] Comment on above: Order Comment: SPLIT 08/03/2021 FROM [id number] Result Comment: None given Performed By: #### 9 1414 #### [facility]-[address], [address] [place] [address] Fig Washer: Ian Martin MD COMMENT Normal [facility] Comment on above: Order Comment: SPLIT 08/03/2021 FROM [id number] Result Comment: EXPL ANATORY NOTE: The Pap is a screening test for cervical cancer. It is not a diagnostic test and is subject to false negative and false positive results. It is most reliable when a satisfactory sample, regularly obtained, is submitted with relevant clinical findings and history, and when the Pap result is evaluated along with historic and current clinical information. Performed By: #### 9 1414 #### [facility]-[place] [address] Fig Washer: Ian Martin MD COMMENT: Normal [facility] Comment on above: Order Comment: SPLIT 08/03/2021 FROM [id number] Result Comment: This Pap test has been evaluated with computer assisted technology. Performed By: #### 9 1414 #### [facility]-[address], [address] [place] [address] Fig Washer: Ian Martin MD AWARD CLERK: Normal [facility] Comment on above: Order Comment: SPLIT 08/03/2021 FROM [id number] Result Comment: LXT, CT(ASCP) CT screening location: [place] [address]. Performed By: #### 9 1414 #### [facility]-[place] [address] Fig Washer: Ian Martin MD HPV mRNA E6/E7 Not detected Normal Not Detected [facility] Comment on above: Order Comment: SPLIT 08/03/2021 FROM [id number] Result Comment: Meth odology: Mental Health Director-Mediated Amplification This assay detects E6/E7 viral messenger RNA (mRNA) from 14 high-risk HPV types (16,18,31,33,35,39,45,51,52,56,58,59,66,68). The analytical performance characteristics of this assay have been determined by [employer]. The modifications have not been cleared or approved by the FDA. This assay has been validated pursuant to the CLIA regulations and is used for clinical purposes. For additional information, please refer to http://education.Nordicplan/faq/TAL060p6 (This link if provided for information/ educational purposes only.) Performed By: #### 9 1414 #### [facility]-[address], [address] [place] [address] Fig Washer: Ian Martin MD INFECTION: Normal [facility] Comment on above: Order Comment: SPLIT 08/03/2021 FROM [id number] Result Comment: Jacquelyn al organisms morphologically consistent with Patience spp. Performed By: #### 9 1414 #### [facility]-[address], [address] [place] [address] Fig Washer: Ian Martin MD INTERPRETATION/RESU LT: Normal [facility] Comment on above: Order Comment: SPLIT 08/03/2021 FROM [id number] Result Comment: Nega tive for intraepithelial lesion or malignancy. Performed By: #### 9 1414 #### [facility]-[address], [address] [place] [address] Fig Washer: Ian Martin MD LMP: Normal [facility] Comment on above: Order Comment: SPLIT 08/03/2021 FROM [id number] Result Comment: NONE GIVEN Performed By: #### 9 1414 #### [facility]-[address], [address] [place] [address] Fig Washer: Ian Martin MD PREV. BX: Normal [facility] Comment on above: Order Comment: SPLIT 08/03/2021 FROM [id number] Result Comment: NONE GIVEN Performed By: #### 9 1414 #### [facility]-[address], [address] [place] [address] Fig Washer: Ian Martin MD PREV. PAP: Normal [facility] Comment on above: Order Comment: SPLIT 08/03/2021 FROM [id number] Result Comment: NONE GIVEN Performed By: #### 9 1414 #### [facility]-[address], [address] [place] [address] Fig Washer: Ian Martin MD SOURCE: Normal [facility] Comment on above: Order Comment: SPLIT 08/03/2021 FROM [id number] Result Comment: None given Performed By: #### 9 1414 #### [facility] [address] Fig Washer: Ian Martin MD STATEMENT OF ADEQUACY: Normal [facility] Comment on above: Order Comment: SPLIT 08/03/2021 FROM [id number] Result Comment: Sati sfactory for evaluation. Endocervical/transformation zone component present. Performed By: #### 9 1414 #### [facility]-[address], [address] [place] [address] Fig Washer: Ian Martin MD [facility] METABOLIC PANE [facility] 08-04-2021 Albumin [Mass/Vol] 4.3 g/dL Normal 3.6-5.1 [facility] Comment on above: Performed By: #### 7 600, [id number] #### [facility] of [address], [address] [place] [address] Fig Washer: Ian Martin MD Albumin/Globulin [Mass ratio] 1.6 {ratio} Normal 1.0-2.5 [facility] Comment on above: Performed By: #### 7 600, [id number] #### [facility] of [address], [address] [place] [address] Fig Washer: Ian Martin MD ALP [Catalytic activity/Vol] 58 U/L Normal 31-125 [facility] Comment on above: Performed By: #### 7 600, [id number] #### [facility] of [address], [address] [place] [address] Fig Washer: Ian Martin MD ALT [Catalytic activity/Vol] 13 U/L Normal 6-29 [facility] Comment on above: Performed By: #### 7 600, [id number] #### [facility] [address], [address] [place] [address] Fig Washer: Ian Martin MD AST [Catalytic activity/Vol] 16 U/L Normal 10-30 [facility] Comment on above: Performed By: #### 7 600, 45659 #### [facility] of [place] [address] Fig Washer: Ian Martin MD Bilirubin [Mass/Vol] 0.3 mg/dL Normal 0.2-1.2 [facility] Comment on above: Performed By: #### 7 600, [id number] #### [facility] of [address], [address] [place] [address] Fig Washer: Ian Martin MD BUN/CREATININE RATIO NOT APPLICABLE Normal 6-22 [facility] Comment on above: Performed By: #### 7 600, 31154 #### [facility] of [place] [address] Fig Washer: Ian Martin MD Calcium [Mass/Vol] 9.6 mg/dL Normal 8.6-10.2 [facility] Comment on above: Performed By: #### 7 600, 66094 #### [facility] of [address], [address] [place] [address] Fig Washer: Ian Martin MD Chloride [Moles/Vol] 106 mmol/L Normal 98-110 [facility] Comment on above: Performed By: #### 7 600, 37323 #### [facility] of [place] [address] Fig Washer: Ian Martin MD CO2 [Moles/Vol] 27 mmol/L Normal 20-32 [facility] Comment on above: Performed By: #### 7 600, 11587 #### [facility] of [place] [address] Fig Washer: Ian Martin MD Creatinine [Mass/Vol] 0.74 mg/dL Normal 0.50-1.10 [facility] Comment on above: Performed By: #### 7 600, 42634 #### [facility] of [address], [address] [place] [address] Fig Washer: Ian Martin MD eGFR NON-AFR. EGYPTIAN 105 mL/min/1.73m2 Normal > OR = 60 [facility] Comment on above: Performed By: #### 7 600, 65336 #### [facility] [place] [address] Fig Washer: Ian Martin MD GFR/1.73 sq M.predicted among blacks MDRD (S/P/Bld) [Vol rate/Area] 122 mL/min/{1.73_m2} Normal > OR = 60 [facility] Comment on above: Performed By: #### 7 600, 78125 #### [facility] of [place] [address] Fig Washer: Ian Martin MD Globulin (S) [Mass/Vol] 2.7 g/dL Normal 1.9-3.7 [facility] Comment on above: Performed By: #### 7 600, 34164 #### [facility] of [address], [address] [place] [address] Fig Washer: Ian Martin MD Glucose [Mass/Vol] 90 mg/dL Normal 65-99 [facility] Comment on above: Result Comment: Fasting reference interval Performed By: #### 7 600, 97484 #### [facility] [place] [address] Fig Washer: Ian Martin MD Potassium [Moles/Vol] 4.4 mmol/L Normal 3.5-5.3 [facility] Comment on above: Performed By: #### 7 600, 86768 #### [facility] of [place] [address] Fig Washer: Ian Martin MD Protein [Mass/Vol] 7.0 g/dL Normal 6.1-8.1 [facility] Comment on above: Performed By: #### 7 600, 87125 #### [facility] [address], [address] [place] [address] Fig Washer: Ian Martin MD Sodium [Moles/Vol] 138 mmol/L Normal 135-146 [facility] Comment on above: Performed By: #### 7 600, 98338 #### [facility] [address], [address] [place] [address] Fig Washer: Ian Martin MD Urea nitrogen [Mass/Vol] 10 mg/dL Normal 7-25 [facility] Comment on above: Performed By: #### 7 600, 94657 #### [facility] [address], [address] [place] [address] Fig Washer: Ian Martin MD LIPID PANEL, [facility] 10-0 Cholesterol [Mass/Vol] 177 mg/dL Normal <200 [facility] Comment on above: Order Comment: PT. C /O ABNORMAL DISCHARGE AND VAGINAL IRRITATION, PLEASE CH FASTING:UNKNOWN COLLECTION REQUIREMENTS NOT MET. PATIENT ADV FASTING: UNKNOWN Performed By: #### 7 600, 29339 #### [facility] [address], [address] [place] [address] Fig Washer: Ian Martin MD Cholesterol in HDL [Mass/Vol] 60 mg/dL Normal > OR = 50 [facility] Comment on above: Order Comment: PT. C /O ABNORMAL DISCHARGE AND VAGINAL IRRITATION, PLEASE CH FASTING:UNKNOWN COLLECTION REQUIREMENTS NOT MET. PATIENT ADV FASTING: UNKNOWN Performed By: #### 7 600, 82700 #### [facility] [address], [address] [place] [address] Fig Washer: Ian Martin MD Cholesterol in LDL [Mass/Vol] 98 mg/dL Normal [facility] Comment on above: Order Comment: PT. C /O ABNORMAL DISCHARGE AND VAGINAL IRRITATION, PLEASE CH FASTING:UNKNOWN COLLECTION REQUIREMENTS NOT MET. PATIENT ADV FASTING: UNKNOWN Result Comment: Refe rence range: <100 Desirable range <100 mg/dL for primary prevention; <70 mg/dL for patients with CHD or diabetic patients with > or = 2 CHD risk factors. LDL-C is now calculated using the Erik calculation, which is a validated novel method providing better accuracy than the Friedewald equation in the estimation of LDL-C. Eliud FRANCO et al. JARROD. 2013;310(19): 8887-6545 (http://education.[employer]/faq/DGM420) Performed By: #### 7 600, 95504 #### [facility] [address], [address] [place] [address] Fig Washer: Ian Martin MD Cholesterol.total/C holesterol in HDL [Mass ratio] 3.0 {ratio} Normal <5.0 [facility] Comment on above: Order Comment: PT. C /O ABNORMAL DISCHARGE AND VAGINAL IRRITATION, PLEASE CH FASTING:UNKNOWN COLLECTION REQUIREMENTS NOT MET. PATIENT ADV FASTING: UNKNOWN Performed By: #### 7 600, 96451 #### [facility] [address], [address] [place] [address] Fig Washer: Ian Martin MD NON HDL CHOLESTEROL 117 mg/dL (calc) Normal <130 [facility] Comment on above: Order Comment: PT. C /O ABNORMAL DISCHARGE AND VAGINAL IRRITATION, PLEASE CH FASTING:UNKNOWN COLLECTION REQUIREMENTS NOT MET. PATIENT ADV FASTING: UNKNOWN Result Comment: For patients with diabetes plus 1 major ASCVD risk factor, treating to a non-HDL-C goal of <100 mg/dL (LDL-C of <70 mg/dL) is considered a therapeutic option. Performed By: #### 7 600, 94590 #### [facility] [address], [address] [place] [address] Fig Washer: Ian Martin MD Triglyceride [Mass/Vol] 94 mg/dL Normal <150 [facility] Comment on above: Order Comment: PT. C /O ABNORMAL DISCHARGE AND VAGINAL IRRITATION, PLEASE CH FASTING:UNKNOWN COLLECTION REQUIREMENTS NOT MET. PATIENT ADV FASTING: UNKNOWN Performed By: #### 7 600, [id number] #### [facility] [address], [address] [place] [address] Fig Washer: Ian Martin MD CULTURE URINEon 07-24-2021 CULTURE URINE Isolate 1 Escherichia coli >100,000 cfu/mL of ORGANISM 1 Escherichia coli ANTIBIOTIC M.I.C RX STATUS Ampicillin 4 S F Ampicillin/Sulbacta m <=2 S F Piperacillin/Tazoba ctam <=4 S F Cefazolin <=4 S F Ceftazidime <=1 S F Ceftriaxone <=1 S F Ertapenem <=0.5 S F Imipenem <=0.25 S F Amikacin <=2 S F Gentamicin <=1 S F Tobramycin <=1 S F Ciprofloxacin <=0.25 S F Levofloxacin <=0.12 S F Nitrofurantoin <=16 S F Trimethoprim/Sulfam ethoxazole <=20 S F Normal [facility] Comment on above: Performed By: #### U RCX #### [facility] [address] [place] [address] Dr. Kirk Blake ER URINE PROFILEon 1 Bilirubin Ql (U) Negative Normal NEGATIVE [facility] Comment on above: Performed By: #### U MICRO, ERUR #### [facility] [address] [place] [address] Dr. Kirk Blake Clarity (U) CLEAR Normal CLEAR [facility] Comment on above: Performed By: #### U MICRO, ERUR #### [facility] [address] [place] [address] Dr. Kirk Blake Color (U) LT. YELLOW Normal YELLOW [facility] Comment on above: Performed By: #### U MICRO, ERUR #### [facility] [address] [place] [address] Dr. Kirk CROWLEY A micrscopic examination will be performed if indicated. Normal [facility] Comment on above: Performed By: #### U MICRO, ERUR #### [facility] [address] [place] [address] Dr. Kirk Blake Glucose Ql (U) Negative Normal NEGATIVE [facility] Comment on above: Performed By: #### U MICRO, ERUR #### [facility] [address] [place] [address] Dr. Kirk Blake Hemoglobin Ql (U) LARGE Abnormal NEGATIVE [facility] Comment on above: Performed By: #### U MICRO, ERUR #### [facility] [address] [place] [address] Dr. Kirk Blake Ketones Ql (U) 15 mg/dl Abnormal NEGATIVE [facility] Comment on above: Performed By: #### U MICRO, ERUR #### [facility] [address] [place] [address] Dr. Kirk Blake LEUKOCYTES SMALL Abnormal NEGATIVE [facility] Comment on above: Performed By: #### U MICRO, ERUR #### [facility] [address] [place] [address] Dr. Kirk Blake Nitrite Ql (U) Positive Abnormal NEGATIVE [facility] Comment on above: Performed By: #### U MICRO, ERUR #### [facility] [address] [address] [address] Kirk Blake pH (U) 6.0 [pH] Normal 5-9 [facility] Comment on above: Performed By: #### U MICRO, ERUR #### [facility] [address] [place] [address] Dr. Kirk Blake SPEC GRAVITY 1.015 Normal 1.005-<=1.025 [facility] Comment on above: Performed By: #### U MICRO, ERUR #### [facility] [address] [place] [address] Dr. Kirk Blake UA PROTEIN TRACE Normal NEGATIVE/ TRACE [facility] Comment on above: Performed By: #### U MICRO, ERUR #### [facility] [address] [place] [address] Dr. Kirk Blake UR MICRO IND INDICATED Normal [facility] Comment on above: Performed By: #### U MICRO, ERUR #### [facility] [address] [place] [address] Dr. Kirk Blake Urobilinogen Qn (U) 0.2 {Chai'U}/dL Normal 0.2 - 1. 0 [facility] Comment on above: Performed By: #### U MICRO, ERUR #### [facility] [address] [place] [address] Dr. Kirk Blake URINE MICROSCOPIC ONLYon BACTERIA LARGE Abnormal NONE SEEN [facility] Comment on above: Performed By: #### U MICRO, ERUR #### [facility] [address] [place] [address] Dr. Kirk Blake Bacteria identified Cx Nom (U) INDICATED Normal [facility] Comment on above: Performed By: #### U MICRO, ERUR #### [facility] [address] [address] [address] Kirk Blake CAST NONE SEEN Normal NONE SEEN [facility] Comment on above: Performed By: #### U MICRO, ERUR #### [facility] [address] [address] [address] Kirk Blake Crystals LM Nom (Urine sed) NONE SEEN Normal NONE SEEN [facility] Comment on above: Performed By: #### U MICRO, ERUR #### [facility] [address] [place] [address] [address] Kirk Blake Epithelial cells LM Ql (Urine sed) MODERATE Abnormal NONE SEEN /RARE [facility] Comment on above: Performed By: #### U MICRO, ERUR #### [facility] [address] [place] [address] Dr. Kirk Blake MUCOUS NONE SEEN Normal NONE SEEN [facility] Comment on above: Performed By: #### U MICRO, ERUR #### [facility] [address] [address] [address] Kirk Blake RBC 10-20 Abnormal 0-2 [facility] Comment on above: Performed By: #### U MICRO, ERUR #### [facility] [address] [place] [address] Dr. Kirk Blake WBC 20-50 Abnormal NONE SEEN [facility] Comment on above: Performed By: #### U MICRO, ERUR #### [facility] [address] [address] [address] Kirk Blake Vital Signs Date Time Vital Sign Value Performing Clinician Facility 04-01-2023 10:30-0400 Blood Pressure Location EULALIA ESPINOZA [facility] 04-01-2023 10:30-0400 Diastolic blood pressure 68 mm[Hg] EULALIA ESPINOZA [facility] 04-01-2023 10:30-0400 Heart rate 70 /min EULALIA ALEXIS [facility] 04-01-2023 10:30-0400 Respiratory rate 16 /min EULALIA ALEXIS [facility] 04-01-2023 10:30-0400 Systolic blood pressure 120 mm[Hg] EULALIA ALEXIS [facility] 05-15-2022 17:50-0400 Body height 162.56 cm Lyubov Marcie Other [facility] Other 05-15-2022 17:50-0400 Body mass index (BMI) [Ratio] 23.34 kg/m2 Lyubov Marcie Other [facility] Other 05-15-2022 17:50-0400 Body temperature 97.9 [degF] Lyubov Marcie Other [facility] Other 05-15-2022 17:50-0400 Body weight 61.69 kg Lyubov Patelmond Other [facility] Other 05-15-2022 17:50-0400 Diastolic blood pressure 68 mm[Hg] Lyubov Marcie Other [facility] Other 05-15-2022 17:50-0400 Respiratory rate 18 /min Lyubov Marcie Other [facility] Other 05-15-2022 17:50-0400 SaO2% (BldA) [Mass fraction] 99 % Lyubov Jack Other [facility] Other 05-15-2022 17:50-0400 Systolic blood pressure 113 mm[Hg] Lyubov Jack Other [facility] Other Encounters Encounter Date Encounter Type Care Provider Facility Start: 04-30-2024 End: 04-30-2024 ambulatory [facility] Start: 04-30-2024 End: 04-30-2024 ambulatory [facility] Start: 03-26-2024 End: 03-26-2024 ambulatory [facility] Start: 03-26-2024 End: 03-26-2024 ambulatory [facility] Start: 02-25-2024 End: 02-25-2024 ambulatory [facility] Start: 11-10-2023 End: 11-10-2023 Lab Drop off EULALIA ESPINOZA [facility] Start: 11-10-2023 End: 11-11-2023 ambulatory PA-C EULALIA ESPINOZA Facility:[facility] Start: 11-10-2023 End: 11-10-2023 Patient encounter procedure EULALIA ESPINOZA [facility] Start: 10-08-2023 End: 10-09-2023 ambulatory Mary M. Lue Facility:[facility] Start: 04-14-2023 End: 04-15-2023 ambulatory Mary M. Lue Facility:[facility] Start: 04-14-2023 End: 04-14-2023 Patient encounter procedure Mary M. Lue [facility] Start: 04-01-2023 End: 04-02-2023 ambulatory PA-C EULALIA ESPINOZA Facility:[facility] Start: 04-01-2023 End: 04-02-2023 ambulatory PA-C EULALIA ESPINOZA Facility:[facility] Start: 04-01-2023 End: 04-01-2023 Lab Drop off EULALIA ESPINOZA [facility] Start: 04-01-2023 End: 04-01-2023 Patient encounter procedure EULALIA ESPINOZA [facility] Start: 03-14-2023 ambulatory PA-C EULALIA ESPINOZA Fac ility:[facility] Start: 05-15-2022 End: 05-15-2022 Departed Referred DO Pedro Luis Marypawan Work Phone: [facility] Start: 05-15-2022 End: 05-15-2022 ambulatory Lyubov Jack Other [facility] Other Start: 05-15-2022 Office outpatient visit 15 minutes Lyubov Jack [facility] Start: 08-24-2021 End: 08-25-2021 ambulatory MARLY FUENTES Facility:[facility] Start: 07-21-2021 End: 07-21-2021 ambulatory ERIK ROBERT Facility:[facility] Procedures Date Procedure Procedure Detail Performing Clinician Start: 03-26-2024 Follow-up visit Follow-up MARLY FUENTES Start: 04-14-2023 Transurethral cystoscopy EULALIA ESPINOZA Start: 05-15-2022 Piperacillin/tazobactam Lyubov Jack Other Ligation of fallopian tube J [facility]RED[facility] Plan of Treatment Date Care Activity Detail Author Bacteria identified in Urine by Culture [facility] Payers Date Payer Category Payer Unknown [id number] 1985 Unknown [id number] .593 1985 Unknown [id number] .[id number] .593 1985 Unknown [id number] 2.16.840.1.267267.3.579.2 .727 1985 Unknown [id number] 2.16.840.1.032094.3.579.2 .727 1985 Unknown [id number] 2.16.840.1.259009.3.579.2 .727 1985 Unknown [id number] 2.16.840.1.120406.3.579.2 .727 1985 Unknown [id number] 2.16.840.1.125124.3.579.2 .727 1985 Unknown [id number] 2.16.840.1.779923.3.579.2 .727 1985 Unknown [id number] 2.16.840.1.731416.3.579.2 .1286 1985 Unknown [id number] 2.16.840.1.494562.3.579.2 .1286 1985 Unknown [id number] 2.16.840.1.735255.3.579.2 .1286 1985 Unknown [id number] 2.16.840.1.608239.3.579.2 .1286 1985 Unknown [id number] 2.16.840.1.747240.3.579.2 .1286 1959 Unknown [id number] Private Health Insurance [facility] Insurance [employer] [id number] Self-pay Self Pay [id number] Social History Date Type Detail Facility Tobacco smoking stat [facility] Unknown if ever smoked [facility] Work Phone: Start: 1985 Sex Assigned At Female F [facility] Sex Assigned At [facility] Start: 04-01-2023 Tobacco smoking status Heavy t obacco smoker (finding) [facility] Functional Status Date Assessment Result Facility 04-14-2023 Functional Status N/A [facility] 04-01-2023 Functional Status N/A [facility] Clinical Notes 05-15-2022 to 12-12-2023 Note Date & Type Note Facility 12-12-2023 Note Chief Complaint Referral * Gross Hematuria HPI Staff Evaluation requested by Dr Pedro Luis Roblero due to gross hematuria. Pt is a new pt. CT 03/13/23 +C&S 05/15/22 *E Coli +UACS 07/21/21 *E Coli CMP 08/03/21 +UACS 05/10/20 *Enterobacter cloacae complex Bilateral flank pain. CT was ordered. Then Large of amount of blood in urine when she would sit down to void that lasted 3 days. Did wear a pad at that time and did not have soiled pads. Then for the next 7 days she did have soiled pads. Recurrent UTI's. At least 2x/yr. Has been lifelong. Usual UTI Sx- flank pain Denies Hx of Kidney Stones. PVR 65ml Denies family Hx of Bladder cancer. Does smoke. Review of Systems PHQ Score Initial Depression Screen Score: 0 no fever, chills, malaise, myalgia. no rash/lesions. no chest pain, palpitations, or SOB. no abdominal pain, nausea, vomiting. no unilateral calf swelling, redness, pain Physical Exam Vitals & Measurements HR: 70(Peripheral) RR: 16 BP: 120/68 HT: 64 in HT: 163 cm WT: 66 kg WT: 145.2 lb BMI: 24.84 General: nontoxic, NAD Mouth: moist mucosa Lungs: normal respiratory effort Cardio: regular rate, good distal perfusion Abdomen: nondistended, no suprapubic distention or tenderness, no CVA tenderness Neurologic: Grossly normal Skin: No rashes or suspicious lesions Assessment/Plan 1. Gross hematuria (R31.0: Gross hematuria) accompanied by R flank pain. however urine cx and CT wo contrast were both neg. UA today shows moderate blood but no signs of infection. Discussed options. The patient is aware that a distinct etiology of the hematuria may not be clear upon conclusion of the workup. Will initiate hematuria workup to include upper urinary tract imaging (CT with contrast), as well as evaluation of the urinary cells with urine cytology (sent today). A cystoscopy will be scheduled to rule out lower urinary tract pathology. The rationale for this workup has been discussed, and all questions have been answered. The risks and benefits for cystoscopy have been discussed. The risks include bleeding, infection, and irritation of the bladder and urinary channel, among others. The patient, after being informed of procedural details and after questions have been answered, wishes to proceed. Full informed consent has been obtained. Will order Local anesthesia. Ordered: CT Abdomen/Pelvis w/ Contrast E&M of New Patient Moderate 45-59 Min 14113 Measure Post Void residual urine and/or bladder capacity by US- non-imaging 43890 Urine Cytology ([facility]) Urnls Dip Stick Auto w/o Microscopy POC [id number] 2. Recurrent UTI (N39.0: Urinary tract infection, site not specified) most recent UTI __a few months ago UA in office today not suspicious for UTI shows blood only current UTI symptoms no UTI frequency a few per year UTIs have been present since childhood, into adolescence and now adulthood does not recall formal work-up as a child. says she was just given lifestyle modifications like no juice, no sitting on concrete, etc. 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 Aim for at least 2L daily. General bladder health reviewed and pt education provided. Bladder irritant list provided for pt to review. 2) Ensure bladder emptying fully. PVR today __65ml . 3) We discussed that there is evidence that herbal supplements may help - cranberry, probiotics, and d-mannose. Pt will start these. Pt advised to contact our office w all future UTI sx so we can monitor urine cx results, treat appropriately (may require extended course abx), and monitor frequency of infections. Pt advised if develops fever, severe flank pain, vomiting - needs to go to ER. May need to consider [facility] pending results of CT w contrast and cysto since pt has had lifelong UTI issues. 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 Medications Ubrelvy 50 mg oral tablet Allergies No Known Medication Allergies Social History Tobacco 10 or more cigarettes (1/2 pack or more)/day in last 30 days Tobacco Use:. Cigarettes, 04/01/2023 Family History Family history is negative Lab Results Ambulatory Point of Car (more content not included)... [facility] Comment on above: Result Comment: Elec tronically Signed By: EULALIA ESPINOZA PA-C\.br\Date and Time Signed: 12/12/23 13:33 EST 11-10-2023 Evaluation + Plan note Diagnostic Tests PendingUrine Culture 11/10/23 [facility] 04-14-2023 Note [id number]:127 [facility] 04-14-2023 Note Cystoscopy ? Voiding after the procedure: there may be some pain, burning, urgency, frequency and blood tinged urine following the procedure. These symptoms usually resolve within 2-5 days. Drink the amount of fluid it takes to keep the urine pink to yellow or clear in color. Drinking enough water and fluids will help to ease any discomfort after your procedure. ? If you are having problems that seem out of the ordinary, please call. ? If unable to contact your physician and you feel it is an emergency, go to the nearest emergency room or call 911 ? Diet ? you may resume your normal diet. ? Activity ? you may resume your normal activities ? Call if you have a fever over 100 degrees. [facility] 04-14-2023 Hospital Discharg e instructions Patient Education 04/14/2023 09:55:15 [facility] - Cystoscopy Discharge Instructions (CUSTOM) Cystoscopy Voiding after the procedure: there may be some pain, burning, urgency, frequency and blood tinged urine following the procedure. These symptoms usually resolve within 2-5 days. Drink the amount of fluid it takes to keep the urine pink to yellow or clear in color. Drinking enough water and fluids will help to ease any discomfort after your procedure. If you are having problems that seem out of the ordinary, please call. If unable to contact your physician and you feel it is an emergency, go to the nearest emergency room or call 911 Diet you may resume your normal diet. Activity you may resume your normal activities Call if you have a fever over 100 degrees. Follow Up Care 04/04/2023 11:46:10 With:Mary Layton Address: [address] [place] [phone] Business (1) [facility] Leobardo Augustin [address] [address] [phone] Business (1) When: Unknown Comments:Schedule follow up in 6 months or sooner if issues arise. Will call if VCUG/PFPT is recommended [facility] 04-01-2023 Hospital Discharg e instructions Patient Education 04/01/2023 17:12:36 Hematuria, Adult Hematuria, Adult Hematuria is blood in the urine. Blood may be visible in the urine, or it may be identified with a test. This condition can be caused by infections of the bladder, urethra, kidney, or prostate. Other possible causes include: Kidney stones. Cancer of the urinary tract. Too much calcium in the urine. Conditions that are passed from parent to child (inherited conditions). Exercise that requires a lot of energy. Infections can usually be treated with medicine, and a kidney stone usually will pass through your urine. If neither of these is the cause of your hematuria, more tests may be needed to identify the cause of your symptoms. It is very important to tell your health care provider about any blood in your urine, even if it is painless or the blood stops without treatment. Blood in the urine, when it happens and then stops and then happens again, can be a symptom of a very serious condition, including cancer. There is no pain in the initial stages of many urinary cancers. Follow these instructions at home: Medicines Take avqf-fpl-smczfrm and prescription medicines only as told by your health care provider. If you were prescribed an antibiotic medicine, take it as told by your health care provider. Do not stop taking the antibiotic even if you start to feel better. Eating and drinking Drink enough fluid to keep your urine pale yellow. It is recommended that you drink 3 4 quarts (2.8 3.8 L) a day. If you have been diagnosed with an infection, drinking cranberry juice in addition to large amounts of water is recommended. Avoid caffeine, tea, and carbonated beverages. These tend to irritate the bladder. Avoid alcohol because it may irritate the prostate (in males). General instructions If you have been diagnosed with a kidney stone, follow your health care provider's instructions about straining your urine to catch the stone. Empty your bladder often. Avoid holding urine for long periods of time. If you are female: ?After a bowel movement, wipe from front to back and use each piece of toilet paper only once. ?Empty your bladder before and after sex. Pay attention to any changes in your symptoms. Tell your health care provider about any changes or any new symptoms. It is up to you to get the results of any tests. Ask your health care provider, or the department that is doing the test, when your results will be ready. Keep all follow-up visits. This is important. Contact a health care provider if: You develop back pain. You have a fever or chills. You have nausea or vomiting. Your symptoms do not improve after 3 days. Your symptoms get worse. Get help right away if: You develop severe vomiting and are unable to take medicine without vomiting. You develop severe pain in your back or abdomen even though you are taking medicine. You pass a large amount of blood in your urine. You pass blood clots in your urine. You feel very weak or like you might faint. You faint. Summary Hematuria is blood in the urine. It has many possible causes. It is very important that you tell your health care provider about any blood in your urine, even if it is painless or the blood stops without treatment. Take tpfs-ktv-cbavztq and prescription medicines only as told by your health care provider. Drink enough fluid to keep your urine pale yellow. This information is not intended to replace advice given to you by your health care provider. Make sure you discuss any questions you have with your health care provider. Document Revised: 06/13/2021 Document Reviewed: 06/13/2021 [employer] Patient Education 2022 [email or web address]. 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 Take Cipro as prescribed until gone. Take Tylenol or Motrin as needed for aches or pains. Follow-up with your family physician if no improvement in 2 to 3 days Apr, Frequency of urination (ICD-10 - R35.0) Apr, Hematuria, unspecified (ICD-10 - R31.9) [facility] Other Evaluation + Plan note No data available for this section [facility] evaluation + Plan note Future Appointments Appointment Date:10/08/2023 08:00:00 AM Scheduled Provider:Mary Layton MD Location:[facility] Appointment Type[facility]UR[facility] note[facility] assessment information available [facility] Work Phone: Hisagsy general Narrative - Reported* Type Description Date Surgical History lymph node removed left neck. Hospitalization History see surgical hx [facility] Other Hospital Discharge instructions No data available for this section [facility] No data available for this section [facility] Summary Purpose Family History No Family History Records FoundNo Family History Records FoundNo Family History Records Found No data available for this section No data available for this section No Family History Records FoundNo Family History Records FoundNo Family History Records Found Advance Directives No Advanced Directives Records Found Advance Directive Response Recorded Date/ Time Advance Directives No May 15 8:49pm Chief Complaint and Reason for Visit Chief Complaint Frequency of urinati on Additional Source Comments INFORMATION SOURCE (unrecogn ized section and content) DATE CREATED AUTHOR 08/26/2021 [facility] DATE CREATED AUTHOR AUTHOR'S ORGANIZ ATION 10/12/2021 [facility] DATE CREATED AUTHOR AUTHOR'S ORGANIZ ATION 05/25/2022 [facility] DATE CREATED AUTHOR AUTHOR'S ORGANIZ ATION 12/28/2023 [facility] DATE CREATED AUTHOR AUTHOR'S ORGANIZ ATION 04/30/2024 [facility] DATE CREATED AUTHOR AUTHOR'S ORGANIZ ATION 05/01/2024 [facility] Care Teams (unrecognized sec tion and content) Team Status: Inactive Member Role Status Dates Pedro Luis Roblero DO Primary Care Provider Active GRICELDA Lloyd Attending Provider Active Team Status: Active Member Role Status Dates Pedro Luis Roblero , Primary Care Provider Active Goals (unrecognized section and content) Goals may be documented in a n alternate sectionNo InformationNo Information No data available for this section No data available for this section No data available for this section No data available for this section No data available for this section REASON FOR VISIT (unrecogniz ed section and content) DYSURIADYSURIA FOR RECORDS PERTAINING TO PATIENTS WHO ARE OR HAVE BEEN ENROLLED IN A CHEMICAL DEPENDENCY/SUBSTANCEABUSE PROGRAM, SOME INFORMATION MAY BE OMITTED. This clinical summary was aggregated from multiple sources. Caution should be exercised in using it in the provision of clinical care. This summary normalizes information from multiple sources, and as a consequence, information in this document may materially change the coding, format and clinical context of patient data. In addition, data may be omitted in some cases. CLINICAL DECISIONS SHOULD BE BASED ON THE PRIMARY CLINICAL RECORDS. [facility]. provides no warranty or guarantee of the accuracy or completeness of information in this document.
--- NOTE | 2024-11-13 21:47 | ECG_ITS ---
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
--- NOTE | 2024-11-13 21:48 | CT_ITS ---
The [address] [address] Patient Name: ALICJA RODRIGUEZ MRN: [id number] date: 1985 Sex: F Assigned Patient Location: ER Current Patient Location: .[facility] Accession/Order Number: [id number] Exam Date: 11/13/2024 21:57 Report Date: 11/13/2024 22:16 At the request of: MARY ARMSTRONG Procedure: CT stroke head/brain wo con CT OF THE BRAIN WITHOUT CONTRAST: 11/13/2024 9:57 PM EST HISTORY: 39-year-old female. Syncopal episode. TECHNIQUE: Contiguous axially collimated images were obtained through the intracranial compartment, from the vertex through the foramen magnum. Coronal and Sagittal reformatted images were prepared on a separate workstation and reviewed on the PACS for anatomic correlation. No contrast was administered. This CT exam was performed using one or more of the following dose reduction techniques: Automated exposure control, adjustment of the mA and/or kV according to patient size, or use of iterative reconstruction technique. Thin section coronal and sagittal images were reconstructed from the axial data set. All images were reviewed and interpreted. COMPARISON: CT maxillofacial bones obtained the same date and dictated separately on 11/13/2024. He see this report. FINDINGS: There is no intracranial hemorrhage or abnormal extra-axial fluid collection. To the extent of evaluated with noncontrast technique, there is no mass lesion appreciated. There is no mass-effect or shift of midline structures. The ventricles and CSF spaces are age appropriate. There is no evidence of hydrocephalus. There is no effacement of the basal cisterns. Barclay white matter differentiation is well preserved throughout, without evidence of acute ischemia. There is no significant leukomalacia. The basal ganglia and thalami are unremarkable. The posterior fossa, brain stem, and fourth ventricle are normal. There is no tonsillar ectopy. The calvarium is intact, without destructive lesion or depressed fracture. The mastoid air cells are well-aerated. The paranasal sinuses are normally aerated. CT/CT stroke head/brain wo con IMPRESSION: No acute or significant intracranial pathology. Acute ischemia may be initially CT occult. Consider MRI evaluation or follow-up head CT, if there is clinical concern for acute ischemia or focal neurologic symptoms. Electronically authenticated by: JABARI MEJIA Date: 11/13/2024 22:16
--- NOTE | 2024-11-13 21:49 | ED.SYNCOPE1 ---
HPI - Syncope General Chief Complaint: Skin/Abscess/Foreign Body Stated Complaint: laceration on forehead Time Seen by Provider: 11/13/24 21:47 Source: patient Source comment: States had a syncopal episode at the store fell and struck head on floor. Y shaped laceration forehead Mode of arrival: walk-in Limitations: no limitations History of Present Illness HPI narrative: The patient said that she was at the [employer] in [facility] when she suddenly felt dizzy and then fell to the floor. She said that she passed out . She struck her face and her forehead against either the counter and or the floor. She denied any preceding chest pain, palpitations, headache, blurred vision, nausea, vomiting or diarrhea. She says that she is relatively healthy. She did have a couple episodes in her past of passing out but it was associated with severe pain, she told me. She denies likelihood of and states she is currently on her menstrual period. She denies any cardiac abnormality including history of dysrhythmia example SVT or A-fib. She denies any other symptoms. She denies any neck pain or back pain, denies injury to the extremities, chest, abdomen or pelvis/buttocks. 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 Related Data Home Medications ?Medication ?Instructions ?Recorded ?Confirmed ubrogepant 50 mg tablet (Ubrelvy) 50 mg PO PRN Migrains 11/12/23 Allergies Allergy/AdvReac Type Severity Reaction Status Date / Time No Known Drug Allergies Allergy Verified 11/13/24 21:37 PFSH PFS Social History Smoking status: Current every day smoker Little interest or pleasure in doing things: not at all Feeling down, depressed, or hopeless: not at all Exam Narrative Exam Narrative: Nurses note and vital signs reviewed and patient is not hypoxic. afebrile General: The patient appears well and in no apparent distress. Patient is resting comfortably on cart. GCS = 15. Skin: Warm, dry, no pallor noted. Head: Y-shaped laceration to the right forehead. Remainder of the face and scalp are normocephalic, atraumatic Neck: Supple, trachea mid-line, no tenderness, no lymphadenopathy. Full ROM and no cervical spinal tenderness. The patient has no step-offs or crepitus noted Eyes: PERRLA, EOMI ENT: TM's clear, no hemotympanum detected, no blood in posterior oropharynx Cardiovascular: Regular Rate and Rhythm Respiratory: Patient is in no distress, no accessory muscle use, lungs are clear to auscultation, no wheezing, rales or rhonchi Chest Wall: no tenderness. Back: No thoracic vertebral or lumbar vertebral tenderness to palpation. Negative straight leg raise bilaterally. No ecchymosis, abrasions, lacerations noted. Musculoskeletal: no sign of long bone fracture, no tenderness, no swelling. Pulses at femoral, DP, PT, and popiteal were 2+ bilaterally. Moves all four extremities in all modalities with 5/5 strength. GI: Normal bowel sounds, no tenderness to palpation, no masses appreciated. No rebound, guarding, or rigidity noted. 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 Psychiatric: Cooperative Constitutional Vital Signs, click to edit/add: Last Vital Signs Temp 98.8 F 11/13/24 21:31 Pulse 83 11/13/24 22:50 Resp 16 11/13/24 22:50 BP 107/58 11/13/24 22:30 Pulse Ox 100 11/13/24 22:50 O2 Del Method Room Air 11/13/24 21:31 Course Vital Signs Vital signs: Vital Signs Temperature 98.8 F 11/13/24 21:31 Pulse Rate 101 H 11/13/24 21:31 Respiratory Rate 16 11/13/24 21:31 Blood Pressure 109/74 11/13/24 21:31 Pulse Oximetry 99 11/13/24 21:31 Oxygen Delivery Method Room Air 11/13/24 21:31 Temperature 98.8 F 11/13/24 21:31 Pulse Rate 83 11/13/24 22:50 Respiratory Rate 16 11/13/24 22:50 Blood Pressure 107/58 11/13/24 22:30 Pulse Oximetry 100 11/13/24 22:50 Oxygen Delivery Method Room Air 11/13/24 21:31 MDM - Syncope MDM Narrative Medical decision making narrative: 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 Blood drawn and sent for evaluation. She was sent for CT scanning of the brain and the facial bones. Blood testing was unremarkable. EKG did not show any worrisome dysrhythmia findings. CT scans of the brain, scalp and facial bones were read as negative for acute or worrisome pathology, per radiologist. Laceration repair: All of the procedure was done under sterile conditions. Wound cleansed with betadine and anesthetized with local injection of approximately 3.5mL of lidocaine 1% with/without epinephrine. The wound was irrigated copiously with sterile normal saline. The wound was explored to depth and found to be free of foreign material. The laceration wound edges were well-approximated and did not require revision. Wound closed with 10 sterile 6-0 ethilon sutures in simple interrupted fashion. Patient tolerated the procedure well. The patient was neurovascularly intact post-repair. Topical bacitracin applied to the laceration and it was dressed with a dry sterile dressing. The patient will need to follow-up in the next 7-10 days for removal. Patient was informed of negative workup. We discussed the proper care for her facial laceration, which will include topical antibiotic ointment applied by the emergency department nurse nnamdi before discharge. She was instructed to avoid alcohol, take her meds as prescribed, reasons to return to the emergency department were given Lab Data Attestation: I reviewed the patient's lab results. Labs: Lab Results 11/13/24 Range/Units 22:10 WBC 8.6 (4.0-11.0) 10^3/uL RBC 4.72 (4.20-5.40) 10^6/uL Hgb 14.8 (12.0-16.0) g/dL Hct 43.7 (36.0-48.0) % MCV 92.6 (81.0-99.0) fL MCH 31.4 (26.7-34.0) pg MCHC 33.9 (29.9-35.2) g/dL RDW 12.7 (11.0-15.0) % Plt Count 365 (150-450) 10^3/uL MPV 9.3 L (9.5-13.5) fL Neut % (Auto) 52.7 (43.0-75.0) % Lymph % (Auto) 34.5 (20.5-60.0) % Wilson % (Auto) 11.1 (1.7-12.0) % Eos % (Auto) 0.8 L (0.9-7.0) % Baso % (Auto) 0.6 (0.2-2.0) % Neut # (Auto) 4.5 (1.4-6.5) 10^3/uL Lymph # (Auto) 3.0 (1.2-3.8) 10^3/uL Wilson # (Auto) 1.0 H (0.3-0.8) 10^3/uL Eos # (Auto) 0.1 (0.0-0.7) 10^3/uL Baso # (Auto) 0.1 (0.0-0.1) 10^3/uL Abs Immat Gran (auto) 0.03 (0.00-0.03) 10^3/uL Imm/Tot Granulo (auto) 0.3 (0.0-0.5) % Sodium 141 (136-145) mmol/L Potassium 3.4 L (3.5-5.1) mmol/L Chloride 103 (98-107) mmol/L Carbon Dioxide 29.2 (21.0-32.0) mmol/L Anion Gap 12.2 BUN 7.0 (7.0-18.0) mg/dL Creatinine 0.89 (0.55-1.02) mg/dL Est GFR ( Amer) >60 (>=60 mL/min/1.73m^2) Est GFR (Non-Af Amer) >60 (>=60 mL/min/1.73m^2) BUN/Creatinine Ratio 7.9 Glucose 113 H (74-106) mg/dL Calcium 8.9 (8.5-10.1) mg/dL Phosphorus 4.1 (2.6-4.7) mg/dL Magnesium 1.8 (1.8-2.4) mg/dL Total Bilirubin 0.4 (0.2-1.0) mg/dL AST 16 (15-37) U/L ALT 19 (14-59) U/L Alkaline Phosphatase 60 (46-116) U/L Total Protein 7.4 (6.4-8.2) g/dL Albumin 4.0 (3.4-5.0) g/dL Globulin 3.4 g/dL Albumin/Globulin Ratio 1.2 Serum HCG, Qual Negative (NEGATIVE) Imaging Data ct head, ct facial: Radiologist's impression: ITS Impressions Brain CT 11/13/24 21:48 IMPRESSION: No acute or significant intracranial pathology. Acute ischemia may be initially CT occult. Consider MRI evaluation or follow-up head CT, if there is clinical concern for acute ischemia or focal neurologic symptoms. Electronically authenticated by: JABARI MEJIA Date: 11/13/2024 22:[address] 11/13/24 21:51 IMPRESSION: 1. No acute facial fracture or joint process. 2. Additional incidental findings as discussed. Electronically authenticated by: JABARI MEJIA Date: 11/13/2024 22:19 ECG Data Attestation: I personally reviewed and interpreted this ECG as follows: Interpretation: EKG interpretation: Emergency Department physician interpretation. Normal sinus rhythm at 81bpm. Normal axis, normal intervals and nonspecific T wave changes without ischemia or ST segment elevation or depression. Discharge Plan Discharge Chief Complaint: Skin/Abscess/Foreign Body Clinical Impression: Syncope, Forehead laceration, Head injury, Contusion of face Patient Disposition: Home, Self-Care Time of Disposition Decision: 23:05 Prescriptions / Home Meds: No Action Ubrelvy 50 mg tablet 50 mg PO PRN (Reason: Migrains) Print Language: Costa [place]ican Instructions: Syncope (ED), Head Injury (ED), Facial Contusion (ED), Facial Laceration (ED) Referrals: CHELSEY RUTH [Primary Care Provider] - 1 week
--- NOTE | 2024-11-13 21:49 | PC.NURSE ---
this patient complains laceration to her rajendra, no active bleeding. this patient said she passed out while at [employer]. per her might face might hit the counter then she fell to the floor at this time the patient is awake and alert and oriented
--- NOTE | 2024-11-13 21:51 | CT_ITS ---
The [address] [address] Patient Name: ALICJA RODRIGUEZ MRN: [id number] date: 1985 Sex: F Assigned Patient Location: ER Current Patient Location: Accession/Order Number: [id number] Exam Date: 11/13/2024 21:57 Report Date: 11/13/2024 22:19 At the request of: MARY ARMSTRONG Procedure: CT facial bones wo con EXAM: CT facial bones wo con HISTORY: facial injury COMPARISON: CT brain without 11/13/2024. TECHNIQUE: Contiguous thin section axial scans obtained through the facial bones and orbits without contrast. Coronal and sagittal reformatted images obtained. Reviewed in bone and soft tissue windows. Dose reduction techniques were achieved by using automated exposure control and/or adjustment of mA and/or kV according to patient size and/or use of iterative reconstruction technique. FINDINGS: Normal appearance of osseous structures and joints of the face. No fractures. Normal bone mineralization. Normal bilateral temporomandibular joints. Intact maxilla and mandible. No acute dentition abnormalities are seen. There is some absent teeth in both the posterior right and left mandible and maxilla. Correlate with exam and history. Normal zygomatic arches and pterygoid plates. There is a metal jewelry in the right nares. Patient unable to remove. No nasal bone fracture. No lytic or blastic bone lesions. Orbital structures and contents are normal. The paranasal sinuses are aerated and clear. Limited images of the mastoid air cells are clear. Imaged intracranial structures are within normal limits. CT brain obtained the same day dictated separately. Normal soft tissues. CT/CT facial bones wo con IMPRESSION: 1. No acute facial fracture or joint process. 2. Additional incidental findings as discussed. Electronically authenticated by: JABARI MEJIA Date: 11/13/2024 22:19
[2024-11-13] MEDS: 0.9 % SODIUM CHLORIDE 1,000 ML 999 ML IV (22:15)
[2024-11-13 22:26] LABS: Basophils Absolute Auto 0.1 10^3/uL (0.0-0.1); Basophils Percent Auto 0.6 % (0.2-2.0); Eosinophils Absolute Auto 0.1 10^3/uL (0.0-0.7); Eosinophils Percent Auto 0.8 % (0.9-7.0); Hematocrit 43.7 % (36.0-48.0); Hemoglobin 14.8 g/dL (12.0-16.0); Immature Granulocytes Abs Auto 0.03 10^3/uL (0.00-0.03); Immature Granulocytes Pct Auto 0.3 % (0.0-0.5); Lymphocytes Percent Auto 34.5 % (20.5-60.0); Mean Corpuscular HGB Conc 33.9 g/dL (29.9-35.2); Mean Corpuscular Hemoglobin 31.4 pg (26.7-34.0); Mean Corpuscular Volume 92.6 fL (81.0-99.0); Mean Platelet Volume 9.3 fL (9.5-13.5); Monocytes Percent Auto 11.1 % (1.7-12.0); Neutrophils Absolute Auto 4.5 10^3/uL (1.4-6.5); Neutrophils Percent Auto 52.7 % (43.0-75.0); Platelet Count 365 10^3/uL (150-450); Red Blood Count 4.72 10^6/uL (4.20-5.40); Red Cell Distribution Width 12.7 % (11.0-15.0); White Blood Count 8.6 10^3/uL (4.0-11.0)
[2024-11-13 22:31] LABS: HCG Qualitative NEGATIVE (NEGATIVE); Internal Control Within Normal Limits
[2024-11-13 22:40] LABS: Alanine Aminotransferase 19 U/L (14-59); Albumin Globulin Ratio 1.2; Alkaline Phosphatase 60 U/L (46-116); Anion Gap 12.2; Aspartate Amino Transferase 16 U/L (15-37); BUN Creatinine Ratio 7.9; Bilirubin Total 0.4 mg/dL (0.2-1.0); Calcium 8.9 mg/dL (8.5-10.1); Carbon Dioxide 29.2 mmol/L (21.0-32.0); Chloride 103 mmol/L (98-107); Estimated GFR (African America >60 (>=60 mL/min/1.73m^2); Estimated GFR (Non-African Ame >60 (>=60 mL/min/1.73m^2); Globulin 3.4 g/dL; Glucose 113 mg/dL (74-106); Magnesium 1.8 mg/dL (1.8-2.4); Phosphorus 4.1 mg/dL (2.6-4.7); Potassium 3.4 mmol/L (3.5-5.1); Sodium 141 mmol/L (136-145); Total Protein 7.4 g/dL (6.4-8.2)
[2024-11-13] MEDS: LIDOCAINE HCL 1%-EPINEPHRINE 1:100,000 20 ML MDV INJ (23:12)
[2024-11-13] MEDS: BACITRACIN 0.9 GM PACKET 1 PACKET TOPICAL (23:14)
--- NOTE | 2024-11-13 23:22 | PC.NURSE ---
i gave this patient verbal and written discharge orders and this patient voices yes to understanding these. at time of discharge this patient voices no concerns and shows no signs of distress
== END 2024-11-13 23:32 | disposition home or self-care (01) ==
PROVIDERS: Emergency Provider Emergency Medicine; PCP Family Medicine
DX: S01.81XA Laceration without foreign body of other part of head, initial encounter (principal); W18.39XA Other fall on same level, initial encounter; R42 Dizziness and giddiness; F17.200 Nicotine dependence, unspecified, uncomplicated; R55 Syncope and collapse; S09.90XA Unspecified injury of head, initial encounter; S00.83XA Contusion of other part of head, initial encounter
CPT/HCPCS: 12013; 36415; 70450; 70486; 80053; 83735; 84100; 84703; 85025; 93005; 99285

== ENCOUNTER 2024-12-20 11:40 | Outpatient (OUT) | payer BC, SELFPAY | END 2024-12-20 11:41 | disposition home or self-care (01) | PROVIDERS: PCP Family Medicine; Visit Provider Nurse Practitioner Family | DX: R55 Syncope and collapse (principal) | CPT/HCPCS: 93270 ==